=== PATIENT | female | born 1960 | race Caucasian/White ===

== ENCOUNTER 2017-10-31 07:51 | Outpatient (REF) | payer MEDICAID, SELFPAY ==
[2012-05-13 09:14] VITALS: BP 98/60; BP 98/70; PULSE 76
[2017-10-31 12:55] LABS: HCT 35.5 % (36.0-46.0); HGB 11.6 g/dL (12.0-15.5); Mean Corp. HGB Concentration 32.7 g/dL (32.0-36.0); Mean Corpuscular Hemoglobin 32.3 pg (27.0-33.0); Mean Corpuscular Volume 98.9 fL (80-95); Mean Platelet Volume 10.2 fL (8.0-11.0); Platelet Count 176 x1000/uL (130-400); RBC 3.59 m/cumm (4.00-5.20); RBC Distribution Width 13.6 % (11.7-14.6); White Blood Cell Count 5.87 k/cumm (4.4-10.8)
[2017-10-31 13:31] LABS: ALT 22 U/L (12-78); AST 21 U/L (15-37); Albumin 3.5 g/dL (3.4-5.0); Alkaline Phosphatase 53 U/L (46-116); Anion Gap 11.2 mmol/L (3-11); BUN 27 mg/dL (7-18); Bilirubin, Total 0.4 mg/dL (0.2-1.0); CO2 21.8 mmol/L (21.0-32.0); CREATININE 1.25 mg/dL (0.55-1.02); Calcium 8.6 mg/dL (8.5-10.1); Chloride 108 mmol/L (98-107); Glucose 78 mg/dL (70-100); Potassium 3.2 mmol/L (3.5-5.1); Sodium 141 mmol/L (136-145); TSH (W/Ref FT4) 1.55 uIU/mL (0.358-3.74); Vitamin B12 685 pg/mL (193-986)
[2017-10-31 13:33] LABS: Folate > 20.0 ng/mL (8.6-20.0)
[2017-10-31 18:05] LABS: Iron 176 ug/dL (50-175); Total Iron Binding Capacity 334 ug/dL (250-450); Transferrin Sat 53 % (15-50)
[2017-10-31 18:18] LABS: Ferritin 102 ng/mL (8-388)
== END 2017-10-31 08:11 ==
LOC: NCHCN 07:51
PROVIDERS: PCP Family Medicine; Visit Provider Family Medicine
DX: D64.9 Anemia, unspecified (principal); K50.90 Crohn's disease, unspecified, without complications; E53.8 Deficiency of other specified B group vitamins; N18.3 Chronic kidney disease, stage 3 (moderate); E03.9 Hypothyroidism, unspecified
CPT/HCPCS: 80053; 85027; 82607; 82728; 82746; 83540; 83550; 84443

== ENCOUNTER 2017-12-27 10:47 | Outpatient (REF) | payer MEDICAID, SELFPAY ==
[2012-05-13 09:14] VITALS: BP 98/60; BP 98/70; PULSE 76
[2017-12-27 12:59] LABS: Anion Gap 11.8 mmol/L (3-11); CO2 23.2 mmol/L (21.0-32.0); CREATININE 1.08 mg/dL (0.55-1.02); Calcium 8.9 mg/dL (8.5-10.1); Chloride 104 mmol/L (98-107); Estimated GFR 52.67 (mL/min/1.73m2); Potassium 4.2 mmol/L (3.5-5.1); Sodium 139 mmol/L (136-145)
[2017-12-27 14:17] LABS: BUN 26 mg/dL (7-18); Glucose 72 mg/dL (70-100)
== END 2017-12-27 11:07 ==
LOC: NCHCN 10:47
PROVIDERS: PCP Family Medicine; Visit Provider Family Medicine
DX: E87.6 Hypokalemia (principal)
CPT/HCPCS: 80048

== ENCOUNTER 2018-01-01 11:38 | Outpatient (CLI) | payer MEDICAID, SELFPAY ==
[2012-05-13 09:14] VITALS: BP 98/60; BP 98/70; PULSE 76
--- NOTE | 2018-01-01 14:15 | MERGE_ITS ---
*[facility]* *[facility]* [address] [place] [address] Date of study: 01/01/2018 Transthoracic Echocardiography M-mode, complete 2D, complete spectral Doppler, and color Doppler *STUDY CONCLUSIONS* Summary: 1. Left ventricle: The cavity size was normal. Wall thickness was normal. Systolic function was normal. The estimated ejection fraction was 60-65%. Wall motion was normal; there were no regional wall motion abnormalities. 2. Aortic valve: A bicuspid morphology cannot be excluded; normal thickness, mildly calcified leaflets. Valve mobility was restricted. There was moderate to severe stenosis. Peak velocity (S): 4m/sec. Mean gradient (S): 34.7mm Hg. VTI ratio of LVOT to aortic valve: 0.28. Valve area (VTI): 0.9cm^2. 3. Ascending aorta: The ascending aorta was mildly dilated. 4. Mitral valve: Mildly calcified annulus. 5. Right ventricle: The cavity size was normal. Wall thickness was normal. Systolic function was normal. *PATIENT PRESENTATION* Height: 154.9cm ((61in) ) S/D Pressure: 110 / 72 Weight: 59kg ((129.7lb) ) BSA: 1.6m^2 Test start time: 02:20 PM. Test stop time: 03:20 PM. ORDERING Lindsey Clay REFERRING Lindsey Clay PERFORMING Unknown PERFORMING [facility] OVERSEAMER RT Andrea BarraganR)(ALAYNA)KATHIA *PROCEDURE DATA* Procedure information: The patient was identified by two identifiers. This study was interpreted by [facility]. Pertinent images and digital data are archived for permanent storage and are available for subsequent review. Comparison was made to the study of 10/31/2014. Study status: Routine. Transthoracic echocardiography. M-mode, complete 2D, complete spectral Doppler, and color Doppler. A Transthoracic Echocardiogram was performed. Scanning was performed from the parasternal, apical, subcostal, and suprasternal notch acoustic windows. Images were obtained using an [id number] cardiac ultrasound machine. Image quality was adequate. Study completion: The patient tolerated the procedure well. There were no complications. History: PMH: Follow up . *CARDIAC ANATOMY* Left ventricle: The cavity size was normal. Wall thickness was normal. Systolic function was normal. The estimated ejection fraction was 60-65%. Wall motion was normal; there were no regional wall motion abnormalities. Diastolic parameters were normal. Aortic valve: A bicuspid morphology cannot be excluded; normal thickness, mildly calcified leaflets. Valve mobility was restricted. Doppler: There was moderate to severe stenosis. There was no significant regurgitation. VTI ratio of LVOT to aortic valve: 0.28. Valve area (VTI): 0.9cm^2. Indexed valve area (VTI): 0.5cm^2/m^2. Peak velocity ratio of LVOT to aortic valve: 0.27. Valve area (Vmax): 0.9cm^2. Indexed valve area (Vmax): 0.5cm^2/m^2. Mean velocity ratio of LVOT to aortic valve: 0.3. Valve area (Vmean): 1cm^2. Indexed valve area (Vmean): 0.6cm^2/m^2. Mean gradient (S): 34.7mm Hg. Peak gradient (S): 63.2mm Hg. Aorta: Aortic root: The aortic root was normal in size. Ascending aorta: The ascending aorta was mildly dilated. Mitral valve: Mildly calcified annulus. Mobility was not restricted. Doppler: Transvalvular velocity was within the normal range. There was no evidence for stenosis. There was trivial regurgitation. Valve area by pressure half-time: 4.3cm^2. Indexed valve area by pressure half-time: 2.6cm^2/m^2. Peak gradient (D): 5.3mm Hg. Left atrium: The atrium was normal in size. Right ventricle: The cavity size was normal. Wall thickness was normal. Systolic function was normal. Pulmonic valve: The pulmonary valve appears to be grossly normal. Doppler: Transvalvular velocity was within the normal range. There was no evidence for stenosis. There was trivial regurgitation. Peak gradient (S): 3.2mm Hg. Tricuspid valve: Structurally normal valve. Doppler: Transvalvular velocity was within the normal range. There was no evidence for stenosis. There was mild regurgitation. Pulmonary artery: Pulmonary systolic pressure was within the normal range, in the range of 25mm Hg to 30mm Hg. Right atrium: The atrium was normal in size. Pericardium: There was no pericardial effusion. Systemic veins: Inferior vena cava: Well visualized. The vessel was patent and normal in size. The respirophasic diameter changes were blunted (less than 50%). Baseline ECG: Normal sinus rhythm. Measurements Left ventricle Value Reference LV ID, ED, PLAX 4.4 cm 3.5 - 6.0 LV ID, ES, PLAX 3.1 cm 2.1 - 4.0 LV PW thickness, ED, PLAX 0.8 cm LV end-diastolic volume, 1-p A2C 64 ml LV ejection fraction, 1-p A2C 61 % LV end-diastolic volume, 1-p A4C 45 ml LV ejection fraction, 1-p A4C 64 % LV e', lateral 0.095 m/sec LV E/e', lateral 12 LV e', medial 0.105 m/sec LV E/e', medial 11 LV e', average 0.1 m/sec LV E/e', average 12 Ventricular septum Value Reference IVS thickness, ED, PLAX 0.7 cm LVOT Value Reference LVOT ID, A-P 2.0 cm LVOT area 3.1 cm^2 LVOT peak velocity, S 1.09 m/sec LVOT mean velocity, S 0.83 m/sec LVOT VTI, S 25.5 cm LVOT peak gradient, S 4.7 mm Hg LVOT mean gradient, S 3 mm Hg Stroke volume (SV), LVOT DP 80 ml Stroke index (SV/bsa), LVOT DP 50 ml/m^2 Aortic valve Value Reference Aortic valve peak velocity, S 4 m/sec Aortic valve mean velocity, S 2.73 m/sec Aortic valve VTI, S 92.0 cm Aortic mean gradient, S 34.7 mm Hg Aortic peak gradient, S 63.2 mm Hg VTI ratio, LVOT/AV 0.28 Aortic valve area, VTI 0.9 cm^2 Velocity ratio, peak, LVOT/AV 0.27 Aortic valve area, peak velocity 0.9 cm^2 Velocity ratio, mean, LVOT/AV 0.3 Aortic valve area, mean velocity 1 cm^2 Aortic valve area/bsa, mean velocity 0.6 cm^2/m^2 Aorta Value Reference Aortic root ID, ED 2.6 cm Ascending aorta ID, A-P, S 3.8 cm Left atrium Value Reference LA ID, A-P, ES 2.5 cm LA ID/bsa, A-P 1.6 cm/m^2 <=2.2 LA area, ES, A4C 13.5 cm^2 8.8 - 23.4 LA area, ES, A2C 13 cm^2 LA volume/bsa, ES, 1-p A4C 35 ml/m^2 LA volume, ES, 2-p 30 ml LA volume/bsa, ES, 2-p 19 ml/m^2 LA/aortic root ratio 0.97 Mitral valve Value Reference Mitral E-wave peak velocity 1.15 m/sec Mitral A-wave peak velocity 0.82 m/sec Mitral deceleration time 179 ms 150 - 230 Mitral pressure half-time 52 ms Mitral peak gradient, D 5.3 mm Hg Mitral E/A ratio, peak 1.41 Mitral valve area, PHT, DP 4.3 cm^2 Tricuspid valve Value Reference Tricuspid regurg peak velocity 2.6 m/sec Tricuspid peak RV-RA gradient 27.9 mm Hg Right atrium Value Reference RA area, ES, A4C 10.1 cm^2 8.3 - 19.5 Pulmonic valve Value Reference Pulmonic peak gradient, S 3.2 mm Hg Legend: (L) and (H) will values outside specified reference range. I have personally reviewed the images and have reviewed and edited the reported findings. Electronically signed by Chidi Lopez 01/01/2018 16:07
== END 2018-01-01 11:58 ==
PROVIDERS: PCP Family Medicine; Visit Provider Family Medicine
DX: I35.0 Nonrheumatic aortic (valve) stenosis (principal); I77.819 Aortic ectasia, unspecified site
CPT/HCPCS: 93306

== ENCOUNTER 2018-03-21 13:28 | Outpatient (CLI) | payer MEDICAID, SELFPAY ==
[2012-05-13 09:14] VITALS: BP 98/60; BP 98/70; PULSE 76
[2018-03-21 14:08] LABS: Abs Immature Grans 0.02 k/cumm (0.0-0.09); Absolute Basophil Count 0.02 k/cumm (0.0-0.2); Absolute Eosinophil Count 0.08 k/cumm (0.0-0.7); Absolute Lymphocyte Count 2.27 k/cumm (1.2-3.4); Absolute Monocyte Count 0.44 k/cumm (0.11-0.7); Absolute Neutrophil Count 7.06 k/cumm (1.2-6.7); Basophils % 0.2; Eosinophils % 0.8; HCT 35.8 % (36.0-46.0); HGB 12.2 g/dL (12.0-15.5); Immature Grans % 0.2; Mean Corp. HGB Concentration 34.1 g/dL (32.0-36.0); Mean Corpuscular Volume 96.8 fL (80-95); Mean Platelet Volume 9.2 fL (8.0-11.0); Monocytes % 4.4; Neutrophils % 71.4; Platelet Count 211 x1000/uL (130-400); RBC Distribution Width 12.4 % (11.7-14.6); White Blood Cell Count 9.89 k/cumm (4.4-10.8)
[2018-03-21 15:33] LABS: ALT 33 U/L (12-78); AST 26 U/L (15-37); Albumin 3.6 g/dL (3.4-5.0); Alkaline Phosphatase 67 U/L (46-116); BUN 28 mg/dL (7-18); Bilirubin, Total 0.3 mg/dL (0.2-1.0); C-Reactive Protein 0.09 mg/dL (0.0-0.3); CREATININE 1.21 mg/dL (0.55-1.02); Calcium 8.8 mg/dL (8.5-10.1); Chloride 103 mmol/L (98-107); Glucose 97 mg/dL (70-100); Sodium 139 mmol/L (136-145); Total Protein 7.8 g/dL (6.4-8.2)
[2018-03-26 18:51] LABS: Adalimumab QN with Reflex Ab 8.3 mcg/mL
== END 2018-03-21 13:48 ==
PROVIDERS: PCP Family Medicine; Visit Provider Internal Medicine Gastroenterology
DX: K50.018 Crohn's disease of small intestine with other complication (principal)
CPT/HCPCS: 36415; 80053; 83520; 85025; 86140

== ENCOUNTER 2018-09-05 10:14 | Outpatient (CLI) | payer MEDICAID, SELFPAY ==
[2012-05-13 09:14] VITALS: BP 98/60; BP 98/70; PULSE 76
[2018-09-05 14:44] LABS: Abs Immature Grans 0.02 k/cumm (0.0-0.09); Absolute Basophil Count 0.02 k/cumm (0.0-0.2); Absolute Eosinophil Count 0.17 k/cumm (0.0-0.7); Absolute Monocyte Count 0.58 k/cumm (0.11-0.7); Absolute Neutrophil Count 4.12 k/cumm (1.2-6.7); Basophils % 0.3; Eosinophils % 2.3; HCT 36.9 % (36.0-46.0); HGB 12.2 g/dL (12.0-15.5); Immature Grans % 0.3; Lymphocytes % 32.8; Mean Corp. HGB Concentration 33.1 g/dL (32.0-36.0); Mean Corpuscular Hemoglobin 32.3 pg (27.0-33.0); Mean Corpuscular Volume 97.6 fL (80-95); Mean Platelet Volume 9.5 fL (8.0-11.0); Monocytes % 7.9; Neutrophils % 56.4; Platelet Count 178 x1000/uL (130-400); RBC 3.78 m/cumm (4.00-5.20); RBC Distribution Width 12.4 % (11.7-14.6); White Blood Cell Count 7.31 k/cumm (4.4-10.8)
[2018-09-05 16:02] LABS: ALT 42 U/L (12-78); AST 38 U/L (15-37); Albumin 3.5 g/dL (3.4-5.0); Alkaline Phosphatase 67 U/L (46-116); Anion Gap 12.1 mmol/L (3-11); BUN 23 mg/dL (7-18); Bilirubin, Total 0.3 mg/dL (0.2-1.0); CO2 19.9 mmol/L (21.0-32.0); CREATININE 1.25 mg/dL (0.55-1.02); Calcium 8.4 mg/dL (8.5-10.1); Chloride 105 mmol/L (98-107); Estimated GFR 44.33 (mL/min/1.73m2); Glucose 88 mg/dL (70-100); Potassium 4.7 mmol/L (3.5-5.1); Sodium 137 mmol/L (136-145); TSH 0.51 uIU/mL (0.358-3.74)
[2018-09-05 16:16] LABS: C-Reactive Protein 0.23 mg/dL (0.0-0.3); Total Protein 7.2 g/dL (6.4-8.2)
[2018-09-07 15:09] LABS: Adalimumab QN with Reflex Ab 10.3 mcg/mL
== END 2018-09-05 10:34 ==
PROVIDERS: PCP Family Medicine; Visit Provider Internal Medicine Gastroenterology
DX: K50.80 Crohn's disease of both small and large intestine without complications (principal); K50.018 Crohn's disease of small intestine with other complication
CPT/HCPCS: 36415; 80053; 83520; 84443; 85025; 86140

== ENCOUNTER 2018-12-13 01:54 | Outpatient (CLI) | payer MEDICAID, SELFPAY ==
[2012-05-13 09:14] VITALS: BP 98/60; BP 98/70; PULSE 76
[2018-12-13 10:04] LABS: Abs Immature Grans 0.01 k/cumm (0.0-0.09); Absolute Basophil Count 0.02 k/cumm (0.0-0.2); Absolute Eosinophil Count 0.18 k/cumm (0.0-0.7); Absolute Lymphocyte Count 1.57 k/cumm (1.2-3.4); Absolute Monocyte Count 0.62 k/cumm (0.11-0.7); Absolute Neutrophil Count 4.67 k/cumm (1.2-6.7); Basophils % 0.3; Eosinophils % 2.5; HCT 39.7 % (36.0-46.0); HGB 12.7 g/dL (12.0-15.5); Immature Grans % 0.1; Lymphocytes % 22.2; Mean Corpuscular Hemoglobin 31.8 pg (27.0-33.0); Mean Corpuscular Volume 99.3 fL (80-95); Mean Platelet Volume 10.1 fL (8.0-11.0); Monocytes % 8.8; Neutrophils % 66.1; Platelet Count 189 x1000/uL (130-400); RBC Distribution Width 12.7 % (11.7-14.6); White Blood Cell Count 7.07 k/cumm (4.4-10.8)
[2018-12-13 11:26] LABS: ALT 28 U/L (14-59); AST 21 U/L (15-37); Albumin 3.7 g/dL (3.4-5.0); Alkaline Phosphatase 66 U/L (46-116); Anion Gap 12.2 mmol/L (3-11); BUN 29 mg/dL (7-18); Bilirubin, Total 0.4 mg/dL (0.2-1.0); CO2 21.8 mmol/L (21.0-32.0); CREATININE 1.23 mg/dL (0.55-1.02); Calcium 9.3 mg/dL (8.5-10.1); Chloride 105 mmol/L (98-107); Estimated GFR 45.17 (mL/min/1.73m2); Glucose 85 mg/dL (70-100); Sodium 139 mmol/L (136-145); Total Protein 7.8 g/dL (6.4-8.2)
[2018-12-13 11:59] LABS: TSH (W/Ref FT4) 1.08 uIU/mL (0.36-3.74); Vitamin B12 428 pg/mL (193-986)
[2018-12-13 12:35] LABS: C-Reactive Protein 0.46 mg/dL (0.0-0.3)
[2018-12-17 21:00] LABS: Adalimumab QN with Reflex Ab 12.7 mcg/mL
== END 2018-12-13 02:14 ==
PROVIDERS: Internal Medicine Gastroenterology; PCP Family Medicine; Visit Provider Family Medicine
DX: E87.6 Hypokalemia (principal); M79.642 Pain in left hand; E53.8 Deficiency of other specified B group vitamins; K50.018 Crohn's disease of small intestine with other complication
CPT/HCPCS: 36415; 80053; 83520; 82607; 84443; 85025; 86140

== ENCOUNTER 2019-01-20 08:15 | Outpatient (CLI) | payer MEDICAID, SELFPAY ==
[2012-05-13 09:14] VITALS: BP 98/60; BP 98/70; PULSE 76
== END 2019-01-20 08:35 ==
PROVIDERS: PCP Family Medicine; Visit Provider Internal Medicine Cardiovascular Disease
DX: I35.0 Nonrheumatic aortic (valve) stenosis (principal); R01.1 Cardiac murmur, unspecified; Z82.49 Family history of ischemic heart disease and other diseases of the circulatory system
CPT/HCPCS: 93005; 93010

== ENCOUNTER 2019-01-27 00:04 | Outpatient (CLI) | payer MEDICAID, SELFPAY ==
[2012-05-13 09:14] VITALS: BP 98/60; BP 98/70; PULSE 76
--- NOTE | 2019-01-27 10:44 | DI.MAMMO_ITS ---
EXAM: MG MAMMO SCREENING CLINICAL HISTORY: SCREENING Z12.31. TECHNIQUE: Full field digital CC and MLO mammographic images were obtained with 3D tomosynthesis and utilizing computer aided detection (CAD). COMPARISON: [id number] available for comparison. FINDINGS: Masses/Architectural Distortion: None seen. Microcalcifications: No suspicious pleomorphic-type are seen. Skin Thickening/Nipple Retraction: None. IMPRESSION: 1. No significant interval change with no specific features of malignancy noted. 2. Unless there is more urgent need, screening mammography is recommended, as per [employer] guidelines. BI-RADS Cat 1 - Negative Breast Density - Category B - Scattered areas of fibroglandular density A negative radiographic report should not delay biopsy if a dominant or clinically suspicious mass is present. Up to ten percent of cancers are not identified on mammography. A negative report may reinforce clinical impression. Adenosis and dense breasts may obscure an underlying neoplasm. False positive reports average 6 to 10%. Patient will receive a letter notifying them of these results.
== END 2019-01-27 00:24 ==
PROVIDERS: PCP Family Medicine; Visit Provider Family Medicine
DX: Z12.31 Encounter for screening mammogram for malignant neoplasm of breast (principal)
CPT/HCPCS: 77063; 77067

== ENCOUNTER 2019-02-11 01:12 | Outpatient (CLI) | payer MEDICAID, SELFPAY ==
[2012-05-13 09:14] VITALS: BP 98/60; BP 98/70; PULSE 76
--- NOTE | 2019-02-11 07:30 | DI.US_ITS ---
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 Conclusion Normal left ventricular size and wall thickness EF is 60-65% with normal wall motion There is no chamber enlargement. The mitral leaflets are thickened with trace regurgitation The aortic valve is probably trileaflet It is sclerotic with moderate to severe aortic stenosis ( m norm gradient 34 mm Hg, calculated aortic valve area 0.8-0.9 cm2) There is mild tricuspid regurgitation The ascending aorta is mildly dilated at 3.8 cm Wall motion Left Ventricle The left ventricle is normal size. Left ventricular systolic function is normal. There is top normal left ventricular wall thickness. Regional wall motion is normal. Left ventricular filling pattern is normal for age. LVEF is estimated to be 60-65%. Right Ventricle Right ventricle is grossly normal in size. Right ventricular systolic function is grossly normal. Atria The left atrium size is normal. The right atrium size is normal. Aortic Valve Aortic valve leaflets are mild to moderately thickened. The valve is probably trileaflet Moderate to severe aortic stenosis. No aortic regurgitation is present. Mitral Valve Mitral valve leaflets are thickened, Trace mitral regurgitation. Tricuspid Valve Tricuspid valve is grossly normal in structure and function. Mild tricuspid regurgitation. Pulmonic Valve Pulmonic valve is not well visualized. Great Vessels Aortic root is normal in size. The pulmonary artery is normal. The ascending aorta is mildly dilated. Pericardium No pericardial effusion. 2D Dimensions IVSd 1.10 cm F: 0.6-1.0 LV EDV A2C 46.80 mL PWd 1.05 cm F: 0.6 - 1.0 LV EDV A4C 39.90 mL LVDd 3.80 cm F: 3.8 - 5.2 LA Volume Index A2C 19.68 mL/m2 LVDs 2.45 cm F: 2.2 - 3.5 LA Volume Index A4C 14.54 mL/m2 Aortic Root 2.75 cm F: 2.7 - 3.3 LA Volume Index Biplane 18.08 mL/m2 RA Area A4C 11.59 cm2 LA Area A4C 11.40 cm2 LVOT 1.90 cm (M/F) 1.5-2.5 LA Area A2C 12.41 cm2 Ascending Aorta 3.81 cm F: 2.3 - 3.1 EF AP4 64.66 % LVEF (Teich) 65.77 % EF AP2 59.83 % LVEF (Reddy's) 60.22 % F: 54 - 74 EF BP 60.22 % LV Volume 39.27 mL F: 46 - 106 LV Volume Index 24.85 mL/m2 F: 29 - 61 FS 35.55 % LV Diastology E/A Ratio 1.1 MED E' 0.10 (>0.07 m/s) LV E/e MED 8.70 (<14) LAT E' 0.10 (>0.1 m/s) LV E/e LAT 8.60 (<14) Aortic Valve LVOT Area 2.95 cm2 LVOT Vmax 1.05 m/s LVOT Mean Fabrizio. 0.77 m/s LVOT Peak Gr. 4.4 mmHg LVOT Mean Gr. 2.6 mmHg AoV Area/ BSA (Vmax) 0.49 cm2/m2 LVOT VTI 0.233 m AoV Vmax 4.01 (0.5-1.3 m/s) JAMES Mean Fabrizio. Index 0.53 cm2/m2 AoV Mean Fabrizio. 2.70 m/s AoV Peak Grad 64.3 mmHg AoV Mean Grad 34.2 (<5 mmHg) AoV VTI 0.902 (0.18-0.25 m) VTI Ratio 0.27 AoV Area VTI 0.79 (2.5-4.5 cm2) AoV Area/ BSA (VTI) 0.50 cm/m2 Mitral Valve MV E Max Fabrizio. 0.86 (0.4-1.3 m/s) MV A Velocity 0.75 (0.4-1.3 m/s) E/A Ratio 1.08 MV Decel. Time 204.45 (160-240 msec) MV PHT 59.30 msec MVA PHT 3.70 cm2 Tricuspid Valve TR P. Velocity 2.44 m/s TV Regurg Vmax 2.44 m/s RAP Estimate 3.00 mmHg RVSP 26.90 mmHg TR P. Gradient 23.90 mmHg
== END 2019-02-11 01:32 ==
PROVIDERS: PCP Family Medicine; Visit Provider Internal Medicine Cardiovascular Disease
DX: I35.0 Nonrheumatic aortic (valve) stenosis (principal); R01.1 Cardiac murmur, unspecified; I77.819 Aortic ectasia, unspecified site
CPT/HCPCS: 93306

== ENCOUNTER 2019-07-10 04:03 | Outpatient (CLI) | payer MEDICAID, SELFPAY ==
[2012-05-13 09:14] VITALS: BP 98/60; BP 98/70; PULSE 76
[2019-07-10 09:53] LABS: Abs Immature Grans 0.02 k/cumm (0.0-0.09); Absolute Basophil Count 0.01 k/cumm (0.0-0.2); Absolute Eosinophil Count 0.14 k/cumm (0.0-0.7); Absolute Lymphocyte Count 2.25 k/cumm (1.2-3.4); Absolute Neutrophil Count 4.44 k/cumm (1.2-6.7); Basophils % 0.1; Eosinophils % 1.9; HCT 37.8 % (36.0-46.0); HGB 12.5 g/dL (12.0-15.5); Immature Grans % 0.3 %; Lymphocytes % 30.6; Mean Corp. HGB Concentration 33.1 g/dL (32.0-36.0); Mean Corpuscular Hemoglobin 32.2 pg (27.0-33.0); Mean Corpuscular Volume 97.4 fL (80-95); Mean Platelet Volume 9.5 fL (8.0-11.0); Monocytes % 6.8; Neutrophils % 60.3; Platelet Count 201 x1000/uL (130-400); RBC 3.88 m/cumm (4.00-5.20); RBC Distribution Width 12.3 % (11.7-14.6); White Blood Cell Count 7.36 k/cumm (4.4-10.8)
[2019-07-10 10:56] LABS: ALT 30 U/L (14-59); AST 25 U/L (15-37); Albumin 3.5 g/dL (3.4-5.0); Alkaline Phosphatase 62 U/L (46-116); Bilirubin, Total 0.4 mg/dL (0.2-1.0); C-Reactive Protein 0.19 mg/dL (0.0-0.3); Total Protein 7.2 g/dL (6.4-8.2)
[2019-07-10 11:05] LABS: TSH (W/Ref FT4) 2.18 uIU/mL (0.36-3.74)
[2019-07-15 12:55] LABS: dsDNA Ab, IgG 80.3 IU/mL (<30.0)
[2019-07-15 14:42] LABS: RNP Ab, IgG 1.3 Units (<20.0); SS-A Antibody 1.2 Units (<20.0); SS-B (La) Ab, IgG 3.1 Units (<20.0); Sm (Smith) Ab, IgG 1.8 Units (<20.0)
== END 2019-07-10 04:23 ==
PROVIDERS: Internal Medicine Gastroenterology; PCP Family Medicine; Visit Provider Nurse Practitioner Family
DX: K50.80 Crohn's disease of both small and large intestine without complications (principal); E03.9 Hypothyroidism, unspecified; M19.90 Unspecified osteoarthritis, unspecified site
CPT/HCPCS: 36415; 80076; 84443; 85025; 86140; 86225; 86235

== ENCOUNTER 2019-10-24 15:37 | Outpatient (REF) | payer MEDICAID, SELFPAY ==
[2012-05-13 09:14] VITALS: BP 98/60; BP 98/70; PULSE 76
[2019-10-26 15:39] LABS: Patient Race White; SARS-CoV-2 RNA Undetected (Undetected); SARS-CoV-2 Specimen Source Nasal
== END 2019-10-24 15:57 ==
LOC: NCHCN 15:37
PROVIDERS: PCP Family Medicine; Visit Provider Family Medicine
DX: Z20.828 Contact with and (suspected) exposure to other viral communicable diseases (principal)
CPT/HCPCS: U0003

== ENCOUNTER 2019-11-24 01:39 | Outpatient (CLI) | payer MEDICAID, SELFPAY ==
[2012-05-13 09:14] VITALS: BP 98/60; BP 98/70; PULSE 76
[2019-11-24 12:17] LABS: Abs Immature Grans 0.02 10^3/uL (0.0-0.06); Absolute Basophil Count 0.03 10^3/uL (0.0-0.2); Absolute Eosinophil Count 0.12 10^3/uL (0.0-0.7); Absolute Monocyte Count 0.41 10^3/uL (0.1-0.8); Absolute Neutrophil Count 2.94 10^3/uL (1.2-6.7); Basophils % 0.6; Eosinophils % 2.3; HCT 41.5 % (36.0-46.0); HGB 13.8 g/dL (11.2-15.7); Immature Grans % 0.4; Lymphocytes % 32.6; MCH 33.7 pg (27.0-33.0); MCHC 33.3 % (32.0-36.0); MCV 101.2 fL (80-95); MPV 9.4 fL (8.0-11.0); Monocytes % 7.9; Neutrophils % 56.2; Nucleated RBC 0 %; Platelet Count 217 10^3/uL (130-400); RDW-SD 45.4 fL; WBC 5.22 10^3/uL (4.4-10.8)
[2019-11-24 13:41] LABS: ALT 33 U/L (14-59); AST 25 U/L (15-37); Alkaline Phosphatase 72 U/L (46-116); Bilirubin, Total 0.3 mg/dL (0.2-1.0); C-Reactive Protein 0.54 mg/dL (0.0-0.3); Total Protein 8.1 g/dL (6.4-8.2)
== END 2019-11-24 01:59 ==
PROVIDERS: PCP Family Medicine; Visit Provider Internal Medicine Gastroenterology
DX: K50.90 Crohn's disease, unspecified, without complications (principal)
CPT/HCPCS: 36415; 80076; 85025; 86140

== ENCOUNTER 2020-01-13 03:36 | Outpatient (CLI) | payer MEDICAID, SELFPAY ==
[2012-05-13 09:14] VITALS: BP 98/60; BP 98/70; PULSE 76
[2020-01-13 16:24] LABS: Abs Immature Grans 0.03 10^3/uL (0.0-0.06); Absolute Basophil Count 0.03 10^3/uL (0.0-0.2); Absolute Eosinophil Count 0.06 10^3/uL (0.0-0.7); Absolute Lymphocyte Count 1.65 10^3/uL (1.2-3.4); Absolute Monocyte Count 0.52 10^3/uL (0.1-0.8); Absolute Neutrophil Count 6.15 10^3/uL (1.2-6.7); Basophils % 0.4; Eosinophils % 0.7; HGB 12.2 g/dL (11.2-15.7); Immature Grans % 0.4; Lymphocytes % 19.5; MCH 32.7 pg (27.0-33.0); MCV 99.2 fL (80-95); MPV 10.3 fL (8.0-11.0); Monocytes % 6.2; Neutrophils % 72.8; Nucleated RBC 0 %; Platelet Count 205 10^3/uL (130-400); RBC 3.73 10^6/uL (3.93-5.22); RDW 12.6 % (11.7-14.6); RDW-SD 45.4 fL; WBC 8.44 10^3/uL (4.4-10.8)
[2020-01-13 17:52] LABS: ALT 30 U/L (14-59); AST 25 U/L (15-37); Alkaline Phosphatase 72 U/L (46-116); Bilirubin, Total 0.3 mg/dL (0.2-1.0); C-Reactive Protein 0.51 mg/dL (0.0-0.3)
== END 2020-01-13 03:56 ==
PROVIDERS: PCP Family Medicine; Visit Provider Internal Medicine Gastroenterology
DX: K50.80 Crohn's disease of both small and large intestine without complications (principal)
CPT/HCPCS: 36415; 80076; 85025; 86140

== ENCOUNTER 2020-02-02 00:26 | Outpatient (CLI) | payer MEDICAID, SELFPAY ==
[2012-05-13 09:14] VITALS: BP 98/60; BP 98/70; PULSE 76
--- NOTE | 2020-02-02 | DI.MAMMO_ITS ---
EXAM: MG MAMMO SCREENING CLINICAL HISTORY: SCREENING, ON HRT,Z01.419,Z79.890. TECHNIQUE: Bilateral full field digital CC and MLO mammographic images were obtained with 3D tomosyn thesis and utilizing computer aided detection (CAD). COMPARISON: Prior mammograms dating back to 2010, the most recent being January 2019. FINDINGS: Small benign-appearing noncalcified oval nodule lateral of center located anteriorly approximately 5 centimeters from the nipple appears unchanged from prior studies. There are no spiculated masses nor malignant appearing microcalcification groups. There is no signif icant architectural distortion nor skin thickening-retraction. IMPRESSION: No radiographic evidence of malignancy. Stable benign findings. BI-RADS Category 2 - Benign Findings Breast Density - Category B - Scattered areas of fibroglandular density Breast density Category C or D implies that the patient has dense breast tissue. Dense breast tissue can make it harder to find cancer on a mammogram. Dense breast tissue is also associated with an incr eased risk of breast cancer. This information about the result of the mammogram report was provided to the patient to raise their awareness. Use this report when you speak with the patient about their risks for breast cancer, which includes their family history. At that time, you may recommend additional screening tests (Ultrasoun d or MRI) as these tests may add significant information. A negative radiographic report should not delay biopsy if a dominant or clinically suspicious mass is present. Up to ten percent of cancers are not identified on mammography. A negative report may reinforce clinical impression. Adenosis and dense breasts may obscure an underlying neoplasm. False positive reports average 6 to 10%. Patient will receive a letter notifying them of these results.
== END 2020-02-02 00:46 ==
PROVIDERS: PCP Family Medicine; Visit Provider Obstetrics & Gynecology Gynecology
DX: Z12.31 Encounter for screening mammogram for malignant neoplasm of breast (principal); I35.0 Nonrheumatic aortic (valve) stenosis
CPT/HCPCS: 77063; 77067

== ENCOUNTER 2020-02-02 00:27 | Outpatient (CLI) | payer MEDICAID, SELFPAY ==
[2012-05-13 09:14] VITALS: BP 98/60; BP 98/70; PULSE 76
--- NOTE | 2020-02-02 10:57 | DI.US_ITS ---
APPROVED REPORT EXAM: Comprehensive 2D, Doppler, and color-flow Echocardiogram Patient Location: Out-Patient Novelty Twister Operator: Jenna Jett RDCS (AE) Indications: Aortic Stenosis Other Information Study Quality: Adequate Conclusion Left Ventricle : The left ventricle is normal size. The left ventricular systolic function is normal. The left ventricular ejection fraction is within the normal range. There is normal left ventricular wall thickness. There is normal LV segmental wall motion. The left ventricular diastolic function is normal. LVEF is 60%. Right Ventricle : The right ventricle is normal size. The right ventricular systolic function is norm al. The RVSP is 22.6 mmHg. Atria : The left atrium size is normal. The right atrium size is normal. Aortic Valve : The Aortic valve is sclerotic. Aortic valve is calcified. Aortic valve is probably t rileaflet. Moderate to severe aortic stenosis by gradient. Peak aortic valve gradient is 41.2mmHg. Hi ghest mean aortic valve gradient is 25.9mmHg. Calculated JAMES by the continuity equation is .96cm2. N o aortic regurgitation is present. Mitral Valve : Moderate mitral annular calcification. Trace mitral regurgitation. No evidence of mitr al valve stenosis. Great Vessels : The aortic root is normal in size. The ascending aorta is moderately dilated (3.7cm). Aortic arch is normal in caliber. IVC is normal in size and collapses >50% with inspiration. Compared to study from 02/11/2019: There is no significant change. The patient's aortic stenosis rem ains moderate by gradient and severe by calculated area. Wall motion Left Ventricle The left ventricle is normal size. The left ventricular systolic function is normal. The left ventric ular ejection fraction is within the normal range. There is normal left ventricular wall thickness. T here is normal LV segmental wall motion. The left ventricular diastolic function is normal. There is no ventricular septal defect visualized. LVEF is 60%. Right Ventricle The right ventricle is normal size. The right ventricular systolic function is normal. The RVSP is 22 .6 mmHg. Atria The left atrium size is normal. The right atrium size is normal. The interatrial septum is intact wit h no evidence for an atrial septal defect. Aortic Valve The Aortic valve is sclerotic. Aortic valve is calcified. Aortic valve is probably trileaflet. Moder ate to severe aortic stenosis. Peak aortic valve gradient is 41.2mmHg. Highest mean aortic valve grad ient is 25.9mmHg. Calculated JAMES by the continuity equation is .96cm2. No aortic regurgitation is pre sent. Mitral Valve Moderate mitral annular calcification. No evidence of mitral valve stenosis. Trace mitral regurgitati on. Tricuspid Valve The tricuspid valve is normal in structure. There is no tricuspid valve stenosis. Trace tricuspid reg urgitation. Pulmonic Valve Pulmonic valve is not well visualized. There is no pulmonic valvular stenosis. There is no pulmonic v alvular regurgitation. Great Vessels The aortic root is normal in size. The ascending aorta is moderately dilated (3.7cm). Aortic arch is normal in caliber. IVC is normal in size and collapses >50% with inspiration. Pericardium There is no pericardial effusion. 2D Dimensions IVSD d PLAX 0.85 cm F: 0.6-1.0 LV Vol A2C d MOD 83.8 mL LVPW d PLAX 0.87 cm F: 0.6 - 1.0 LV Vol A4C d MOD 71.4 mL LVID d PLAX 4.01 cm F: 3.8 - 5.2 LA vol/ BSA A2C s A-L 18.2 mL/m2 LVDs 2.45 cm F: 2.2 - 3.5 LA vol/ BSA A4C s A-L 16.5 mL/m2 Ao Root d 2.35 cm F: 2.7 - 3.3 LA Vol/ BSA Biplane s A-L 17.5 mL/m2 RA Area A4C 9.83 cm2 LA Area A4C s MOD 12.22 cm2 RA Vol/ BSA A4C s A-L 13.6 mL/m2 LA Area A2C s MOD 12.75 cm2 Ao Asc Diam d 3.70 cm F: 2.3 - 3.1 LV EF A4C MOD 60.5 % LV EF Teichholz 69.6 % LV EF A2C MOD 59.7 % LVEF (Reddy's) 58.89 % F: 54 - 74 LV EF Biplane MOD 58.9 % LV Volume 62.86 mL F: 46 - 106 SV 45.55 mL LV Volume Index 39.53 mL/m2 F: 29 - 61 SV Index 28.49 mL/m2 LV Vol Biplane MOD 77.3 mL FS 38.70 % M-Mode TAPSE 2.17 cm (M/F) >1.7 LV Diastology MV E' medial 0.093 (>0.07 m/s) E/A Ratio 1.0 LV E/e MED 9.20 (<14) MV E Vmax 0.86 (0.4-1.3 m/s) MV E' lateral 0.100 (>0.1 m/s) MV A Vmax 0.85 (0.4-1.3 m/s) LV E/e LAT 8.50 (<14) MV E/A Ratio 0.96 MV E/E' medial 9.22 MV E/E' lateral 8.55 Aortic Valve LVOT Area 2.70 cm2 AoV Area Vmax 0.96 cm2 LVOT Vmax 1.13 m/s AoV Area/ BSA (Vmax) 0.60 cm2/m2 LVOT Mean Fabrizio. 0.82 m/s JAMES Mean Fabrizio. 0.92 cm2 LVOT Peak Grad 5.1 mmHg JAMES Mean Fabrizio. Index 0.57 cm2/m2 LVOT Mean Grad 3.1 mmHg LVOT VTI 0.225 m LVOT Diam s 1.85 cm AoV Vmax 3.21 m/s Velocity Ratio 0.35 AoV Mean Fabrizio. 2.43 m/s AoV Peak Grad 41.2 mmHg LVOT SV 60.90 mL AoV Mean Grad 25.9 mmHg AoV VTI 0.622 m AoV Area VTI 0.98 cm2 AoV Area/ BSA (VTI) 0.61 cm/m2 Mitral Valve MV DT 233 (160-240 msec) MV PHT 68 msec MV Area PHT 3.25 cm2 MV VTI 0.237 m MV VTI Annulus 0.245 m MV Area VTI 2.67 (4.0-6.0 cm2) Pulmonary Valve PV Vmax 0.83 (0.5-1.5 m/s) RVOT Peak Gr. 1.65 mmHg PV Peak Grad 2.8 mmHg RVOT Mean Gr. 0.85 mmHg PV Mean Grad 1.7 mmHg RVOT VTI 0.112 m PV VTI 0.172 m RVOT Vmax 0.64 m/s Tricuspid Valve TR Peak Grad 19.5 mmHg TR Vmax 2.21 m/s RA Pressure 3.00 mmHg RVSP (TR) 22.6 mmHg
== END 2020-02-02 00:47 ==
PROVIDERS: PCP Family Medicine; Visit Provider Internal Medicine Cardiovascular Disease
DX: I35.0 Nonrheumatic aortic (valve) stenosis (principal); I77.810 Thoracic aortic ectasia
CPT/HCPCS: 93306

== ENCOUNTER 2020-06-04 01:02 | Outpatient (CLI) | payer MEDICAID, SELFPAY ==
[2012-05-13 09:14] VITALS: BP 98/60; BP 98/70; PULSE 76
[2020-06-04 12:30] LABS: Abs Immature Grans 0.03 10^3/uL (0.0-0.06); Absolute Basophil Count 0.03 10^3/uL (0.0-0.2); Absolute Eosinophil Count 0.12 10^3/uL (0.0-0.7); Absolute Lymphocyte Count 1.39 10^3/uL (1.2-3.4); Absolute Monocyte Count 0.45 10^3/uL (0.1-0.8); Basophils % 0.5; Eosinophils % 2.1; HCT 37.7 % (36.0-46.0); HGB 12.1 g/dL (11.2-15.7); Immature Grans % 0.5; Lymphocytes % 23.9; MCH 31.8 pg (27.0-33.0); MCHC 32.1 % (32.0-36.0); MPV 9.9 fL (8.0-11.0); Monocytes % 7.7; Neutrophils % 65.3; Nucleated RBC 0 %; Platelet Count 218 10^3/uL (130-400); RBC 3.81 10^6/uL (3.93-5.22); RDW 13.3 % (11.7-14.6); RDW-SD 47.5 fL; WBC 5.82 10^3/uL (4.4-10.8)
[2020-06-04 13:12] LABS: ALT 37 U/L (14-59); AST 33 U/L (15-37); Albumin 3.8 g/dL (3.4-5.0); Alkaline Phosphatase 71 U/L (46-116); Anion Gap 12.9 mmol/L (3-11); BUN 22 mg/dL (7-18); Bilirubin, Direct 0.1 mg/dL (0.0-0.2); Bilirubin, Total 0.2 mg/dL (0.2-1.0); C-Reactive Protein 0.36 mg/dL (0.0-0.3); CO2 24.1 mmol/L (21.0-32.0); CREATININE 1.2 mg/dL (0.55-1.02); Calcium 9.6 mg/dL (8.5-10.1); Chloride 105 mmol/L (98-107); Estimated GFR 46.14 (mL/min/1.73m2); Glucose 80 mg/dL (74-106); Potassium 4.2 mmol/L (3.5-5.1); Sodium 142 mmol/L (136-145); TSH (W/Ref FT4) 1.07 uIU/mL (0.36-3.74); Total Protein 7.6 g/dL (6.4-8.2)
[2020-06-04 13:21] LABS: Hemoglobin A1C 5.1 % (<5.7)
[2020-06-04 14:57] LABS: Vitamin B12 779 pg/mL (193-986)
[2020-06-08 13:52] LABS: dsDNA Ab, IgG 41.5 IU/mL (<30.0)
[2020-06-08 15:29] LABS: RNP Ab, IgG 1.7 Units (<20.0); SS-A Antibody 1.1 Units (<20.0); SS-B (La) Ab, IgG 2.3 Units (<20.0); Sm (Smith) Ab, IgG 1.6 Units (<20.0)
== END 2020-06-04 01:03 | disposition home or self-care (01) ==
LOC: LOS 01:03
PROVIDERS: PCP Family Medicine; Visit Provider Internal Medicine Gastroenterology
DX: K52.9 Noninfective gastroenteritis and colitis, unspecified; K50.919 Crohn's disease, unspecified, with unspecified complications; E87.6 Hypokalemia; E53.8 Deficiency of other specified B group vitamins; N18.30 Chronic kidney disease, stage 3 unspecified; E03.9 Hypothyroidism, unspecified; R79.89 Other specified abnormal findings of blood chemistry; M19.09 Primary osteoarthritis, other specified site
CPT/HCPCS: 36415; 80048; 80076; 82607; 83036; 84443; 85025; 86140; 86225; 86235

== ENCOUNTER 2020-11-11 09:58 | Emergency (ER) | payer MEDICAID, SELFPAY ==
[2012-05-13 09:14] VITALS: BP 98/60; BP 98/70; PULSE 76
[2020-11-11] VITALS (63 sets, daily range): BP systolic 93–128; BP diastolic 68–99; PULSE 87–143; RESP 12–29; TEMP 36–36.1; O2SAT 93–100
--- NOTE | 2020-11-11 10:00 | RT.EKG_ITS ---
APPROVED REPORT Exam: Resting ECG Reason for Exam: SOB Patient Location: E HR:130 bpm ECG Measurements Heart Rate 130 AXIS TN 137 P 69 QRSd 74 QRS 13 QT 283 T 87 QTc 417 Conclusion Sinus tachycardia...rate> 99. Sinus. No STEMI. I have reviewed and interpreted ECG and agree with software generated interpretation.
--- NOTE | 2020-11-11 10:02 | ED.GENADUL_ITS ---
Discharge Plan Disposition Patient Disposition: HOME Condition: Improving Discharge Details Clinical Impression: Diarrhea, Dehydration Primary Care Provider: Lindsey Clay ED Provider: Anisha Bernardo Home Meds and New Rx's Prescriptions: New oxycodone 5 mg tablet 5 mg PO Q6H PRN (Reason: pain) Qty: 7 RF: 0 Continued famotidine 20 mg tablet 20 mg PO HS RF: 0 topiramate [Topamax] 50 mg tablet 50 mg PO QHS Qty: 90 RF: 3 Zyrtec 10 mg capsule 10 mg PO DAILY PRNRF: 0 NEXIUM 40 MG CAPSULE.DR 40 mg PO BID RF: 0 Mirena 20 mcg/24 hours (6 yrs) 52 mg Intrauterine Device See Rx Instructions .ROUTE .COMPLEX RF: 0 rizatriptan 10 mg Tablet 10 mg PO DAILY PRNRF: 0 valacyclovir 500 mg Tablet 1,000 mg PO BID RF: 0 triamcinolone acetonide 0.1 % Cream 1 applic TOPICAL BID RF: 0 propranolol 10 mg Tablet 10 mg PO DAILY RF: 0 [id number] Tablet 1 tab PO DAILY RF: 0 estradiol [Climara] 0.025 mg/24 hr Patch Weekly 1 patch topical QWEEK RF: 0 levothyroxine 50 mcg Tablet 50 mcg PO DAILY RF: 0 cyanocobalamin (vitamin B-12) 1,000 mcg/mL Solution 1,100 mcg IM Q2W RF: 0 tacrolimus 0.1 % Ointment 1 applic topical PRN PRNRF: 0 zaleplon 10 mg Capsule 10 mg PO PRN PRNRF: 0 estradiol [Estrace] 0.01 % (0.1 mg/gram) Cream 1 applic VAGINAL DAILY RF: 0 clindamycin phosphate 1 % Solution 1 applic topical BID RF: 0 magnesium 200 mg Tablet 400 mg PO DAILY RF: 0 cholecalciferol (vitamin D3) 25 mcg (1,000 unit) Tablet 25 mcg PO DAILY RF: 0 potassium chloride 20 mEq Tablet Extended Release 20 meq PO DAILY RF: 0 Discharge Instructions Instructions: Dehydration (ED), Acute Diarrhea (ED) Additional Instructions: Your symptoms may be due to a viral illness which may be self-limiting, meaning that it may last for a few days and then resolved. It is important to drink a lot of fluids and get a lot of rest. Take the Zofran as needed and directed for nausea and vomiting. Take the pain medication as needed and directed for abdominal or leg pain. Call your primary care doctor tomorrow to schedule a follow-up appointment for reevaluation within the next week. Return immediately to the emergency department if you develop any worsening or new concerning symptoms. Discharge Data Discharge Date/Time-TO BE ENTERED AT DEPARTURE: 11/11/20 18:55 Discharge Physician: Anisha Bernardo Medical Decision Making 60-year-old female with a history of Crohn's disease with multiple abdominal surgeries including bowel resection and ileostomy, GERD, hypothyroidism presents for diarrhea and abdominal pain since last night. She also admits to shortness of breath which she feels is due to her feeling dehydrated. Heart rate 130s. Blood pressure 93/69. She appears uncomfortable with restless legs. She has an ileostomy and abdomen soft and tender in the lower quadrants but without rigidity or guarding. Consider colitis, gastroenteritis, bowel obstruction, electrolyte abnormality, UTI, dehydration. Will place an IV, bolus IV fluids, screening labs, urinalysis, CT abdomen and pelvis. Labs reviewed. White blood cell count 15. Hemoglobin 16.2. Bicarb 20.4. Anion gap 18.6. BUN 34 creatinine 2.3 compared to baseline 1.2. Calcium 12.2. COVID negative. UA notes blood but no evidence of white blood cells. CT abdomen and pelvis notes: IMPRESSION: 1. Previous colectomy. Right ileostomy. No bowel obstruction. No free air. No abscess. No ascites. 2. Cholelithiasis. No obvious acute cholecystitis nor dilatation of the biliary tree. 3. Solitary benign cyst superior pole left kidney. No other focal renal findings. No hydronephrosis. 4. IUD in satisfactory position in the uterine canal. No abnormal adnexal findings. No free fluid in the pelvis. 5. Nodular infiltrates in the right middle lobe. No pleural effusions. 7. Dilated ascending thoracic aorta exhibiting maximum diameter of 4 cm. Cannot assess for dissection without IV contrast. No pericardial effusion. Patient reassessed and she feels much better. Heart rate improved to low 100s. She denies any abdominal pain at this time. Will repeat CMP. Stool culture sent. CMP notes significant improvement in renal function and normalization of calcium. Patient reassessed and she continues to feel better and she feels good to go home. She was given oxycodone for home which may help with her diarrhea and pain. Advised to follow up with the primary care doctor for re-evaluation. Usual and customary return precautions given prior to discharge. Medical Records Medical records reviewed: Yes I reviewed the patient's medical records. Imaging Data Radiologic Study: Radiologist's impression: CT CHEST/ABD/PEL WO CLINICAL HISTORY: sob, abd pain, diarrhea. TECHNIQUE: Imaging Protocol: Axial computed tomography images with coronal and sagittal reformatted images were created and reviewed CONTRAST MATERIAL: Intravenous: none Oral: Yes COMPARISON: CR CHEST 2 VIEWS PA,LAT from 03/16/2015 FINDINGS: CHEST: LUNGS: There are small nodular infiltrates therein inferior aspect of the right middle lobe. There is a subtle noncalcified nodular infiltrate in the right upper lobe measuring 3 millimeters. Mild focal pleural thickening over the lateral aspect of the right upper lobe is noted. No pleural effusion. In the opposite-left lung there are benign-appearing increased markings in the lingular segment. No significant focal findings in the left lower lobe. No pleural effusion on either side. No focal findings in trachea and mainstem bronchi. MEDIASTINUM: No obvious hilar nor mediastinal adenopathy. CARDIAC: Heart size is normal. There is no pericardial effusion.The ascending thoracic aorta is dilated, exhibiting diameter 4 cm. Diameter of the aortic arch is upper normal. Diameter of descending thoracic aorta is upper normal. Cannot assess for dissection without IV contrast. OSSEOUS: No significant osseous lesions.. ABDOMEN: There is no ascites. There is a right-sided ileostomy. Colon is surgically absent. Oral contrast has progressed to the level of the ileostomy bag. There is no evidence of hernia at this level nor elsewhere in the abdominal wall. No mesenteric swirl sign. No free air. No free fluid. No abscess. LIVER: no obvious focal hepatic lesions evident on this noninfused study. GALLBLADDER/BILIARY: There is a solitary tiny hyperdense focus on the dependent wall of the gallbladder which is probably a tiny gallstone. No gallbladder wall edema. No pericholecystic fluid. CBD is not dilated. PANCREAS: No evidence of obvious pancreatic mass nor dilatation of the pancreatic duct. SPLEEN: Spleen is not enlarged. No obvious intrasplenic lesions. ADRENALS: There are no significant adrenal masses. KIDNEYS: There is a 1.7 x 1.7 cm benign exophytic cyst off the superior pole of the left kidney. There are no other significant focal renal findings. No calculi. No hydronephrosis. No hydroureter.. No obvious abnormality in the nondistended urinary bladder ABDOMINAL AORTA: Abdominal aorta is not enlarged. LYMPH NODES: There is no retroperitoneal nor para-aortic adenopathy. ABDOMINAL WALL/GI: No evidence of significant anterior abdominal wall nor inguinal hernia. No evidence of bowel obstruction. PELVIS: LYMPH NODES: There is no intrapelvic nor inguinal adenopathy. GI: Appendix is surgically absent.Previous colectomy. URINARY BLADDER: No calculi nor obvious masses evident REPRODUCTIVE: IUD in the uterine canal appears to be in satisfactory position. No abnormal adnexal masses. No free fluid in the pelvis. OSSEOUS: No significant osseous lesions. IMPRESSION: 1. Previous colectomy. Right ileostomy. No bowel obstruction. No free air. No abscess. No ascites. 2. Cholelithiasis. No obvious acute cholecystitis nor dilatation of the biliary tree. 3. Solitary benign cyst superior pole left kidney. No other focal renal findin gs. No hydronephrosis. 4. IUD in satisfactory position in the uterine canal. No abnormal adnexal findings. No free fluid in the pelvis. 5. Nodular infiltrates in the right middle lobe. No pleural effusions. 7. Dilated ascending thoracic aorta exhibiting maximum diameter of 4 cm. Cannot assess for dissection without IV contrast. No pericardial effusion. Lab Data Lab results reviewed: Yes I reviewed the patient's lab results. Labs: Laboratory Tests Range/Units 11/11/20 11/11/20 11/11/20 10:13 11:05 12:40 WBC (4.4-10.8) 10^3/uL 15.19 H RBC (3.93-5.22) 10^6/uL 5.12 Hgb (11.2-15.7) g/dL 16.2 H Hct (36.0-46.0) % 49.1 H MCV (80-95) fL 95.9 H MCH (27.0-33.0) pg 31.6 MCHC (32.0-36.0) % 33.0 RDW (11.7-14.6) % 12.1 Plt Count (130-400) 10^3/uL 274 MPV (8.0-11.0) fL 9.5 Immature Gran % 0.6 Neutrophils % 82.6 Lymphocytes % 9.9 Monocytes % 6.2 Eosinophils % 0.4 Basophils % 0.3 Nucleated RBC % % 0 Absolute Neutrophils (1.2-6.7) 10^3/uL 12.55 H Absolute Lymphocytes (1.2-3.4) 10^3/uL 1.50 Absolute Monocytes (0.1-0.8) 10^3/uL 0.94 H Absolute Eosinophils (0.0-0.7) 10^3/uL 0.06 Absolute Basophils (0.0-0.2) 10^3/uL 0.05 Sodium (136-145) mmol/L 134 L Potassium (3.5-5.1) mmol/L 4.1 Chloride (98-107) mmol/L 95 L Carbon Dioxide (21.0-32.0) mmol/L 20.4 L Anion Gap (3-11) mmol/L 18.6 H BUN (7-18) mg/dL 34 H Creatinine (0.55-1.02) mg/dL 2.3 H Estimated GFR/1.73 m2 (mL/min/1.73m2) 21.78 Glucose (74-106) mg/dL 167 H Calcium (8.5-10.1) mg/dL 12.2 H* Magnesium (1.8-2.4) mg/dL 1.9 Total Bilirubin (0.2-1.0) mg/dL 0.6 AST (15-37) U/L 33 ALT (14-59) U/L 40 Alkaline Phosphatase (46-116) U/L 115 Troponin I (<0.06) ng/mL < 0.05 Total Protein (6.4-8.2) g/dL 11.1 H Albumin (3.4-5.0) g/dL 5.2 H Lipase (73-393) U/L 284 Urine Color (Yellow) Yellow Urine Clarity (Clear) Sl Cloudy Urine pH (5-8) 6.0 Ur Specific [place] (1.005-1.025) 1.020 Urine Protein (Negative) mg/dL 100 H Urine Ketones (Negative) mg/dL Negative Urine Blood (Negative) Trace-lysed H Urine Nitrite (Negative) Negative Urine Bilirubin (Negative) Negative Urine Urobilinogen (Up TO 0.2) EU/dL 0.2 Ur Leukocyte Esterase (Negative) Negative Urine RBC (0-2) HPF 3-5 H Urine WBC (0-5) HPF 0-2 Ur Epithelial Cells (Negative) HPF Many Urine Crystals (Negative) HPF Few Amorphous Urine Bacteria (Negative) HPF Moderate Urine Casts (Negative) LPF 10-20 Hyaline Urine Mucus (Negative) Trace Ur Culture Indicated? No/Sq. Contamination Urine Glucose (Negative) mg/dL Negative COVID-19 Source SARS-CoV-2 (PCR) (Negative) Range/Units 11/11/20 11/11/20 16:25 16:30 WBC (4.4-10.8) 10^3/uL RBC (3.93-5.22) 10^6/uL Hgb (11.2-15.7) g/dL Hct (36.0-46.0) % MCV (80-95) fL MCH (27.0-33.0) pg MCHC (32.0-36.0) % RDW (11.7-14.6) % Plt Count (130-400) 10^3/uL MPV (8.0-11.0) fL Immature Gran % Neutrophils % Lymphocytes % Monocytes % Eosinophils % Basophils % Nucleated RBC % % Absolute Neutrophils (1.2-6.7) 10^3/uL Absolute Lymphocytes (1.2-3.4) 10^3/uL Absolute Monocytes (0.1-0.8) 10^3/uL Absolute Eosinophils (0.0-0.7) 10^3/uL Absolute Basophils (0.0-0.2) 10^3/uL Sodium (136-145) mmol/L 137 Potassium (3.5-5.1) mmol/L 3.7 Chloride (98-107) mmol/L 102 Carbon Dioxide (21.0-32.0) mmol/L 22.7 Anion Gap (3-11) mmol/L 12.3 H BUN (7-18) mg/dL 30 H Creatinine (0.55-1.02) mg/dL 1.7 H Estimated GFR/1.73 m2 (mL/min/1.73m2) 30.87 Glucose (74-106) mg/dL 99 D Calcium (8.5-10.1) mg/dL 9.1 Magnesium (1.8-2.4) mg/dL Total Bilirubin (0.2-1.0) mg/dL 0.4 AST (15-37) U/L 26 ALT (14-59) U/L 28 Alkaline Phosphatase (46-116) U/L 81 Troponin I (<0.06) ng/mL Total Protein (6.4-8.2) g/dL 8.0 Albumin (3.4-5.0) g/dL 3.7 Lipase (73-393) U/L Urine Color (Yellow) Urine Clarity (Clear) Urine pH (5-8) Ur Specific [place] (1.005-1.025) Urine Protein (Negative) mg/dL Urine Ketones (Negative) mg/dL Urine Blood (Negative) Urine Nitrite (Negative) Urine Bilirubin (Negative) Urine Urobilinogen (Up TO 0.2) EU/dL Ur Leukocyte Esterase (Negative) Urine RBC (0-2) HPF Urine WBC (0-5) HPF Ur Epithelial Cells (Negative) HPF Urine Crystals (Negative) HPF Urine Bacteria (Negative) HPF Urine Casts (Negative) LPF Urine Mucus (Negative) Ur Culture Indicated? Urine Glucose (Negative) mg/dL COVID-19 Source Nasal/Nares SARS-CoV-2 (PCR) (Negative) Negative ECG Data Attestation: I personally reviewed and interpreted this ECG (s) as follows: Interpretation: Rate of 130, sinus, no acute ST elevation or depression. KS 137. QTc 417. QRS 74 HPI General Mode of arrival: ambulatory . Date/Time Provider Initiated Documentation: 11/11/20 10:00 . Limitations to Documentation: no limitations . Information obtained by: patient . HPI Narrative: Patient is a 60-year-old female with a history of Crohn's disease with multiple abdominal surgeries and ileostomy for many years presents for diarrhea since yesterday afternoon. She does also admit to a significant amount of crampy abdominal pain, bloating and gas. Related Data Home Medications Medication Instructions Recorded Confirmed topiramate 50 mg tablet 50 mg PO QHS #90 tab 12/29/19 11/11/20 famotidine 20 mg tablet 20 mg PO HS 03/30/20 11/11/20 cetirizine 10 mg capsule 10 mg PO DAILY PRN 08/30/20 11/11/20 Mirena See Rx Instructions .ROUTE .COMPLEX 11/11/20 11/11/20 [id number]-[id number] 1 tab PO DAILY 11/11/20 11/11/20 cholecalciferol (vitamin D3) 25 mcg PO DAILY 11/11/20 11/11/20 clindamycin phosphate 1 applic TOPICAL BID 11/11/20 11/11/20 cyanocobalamin (vitamin B-12) 1,100 mcg IM Q2W 11/11/20 11/11/20 estradiol [Climara] 1 patch TOPICAL QWEEK 11/11/20 11/11/20 estradiol [Estrace] 1 applic VAGINAL DAILY 11/11/20 11/11/20 levothyroxine 50 mcg PO DAILY 11/11/20 11/11/20 magnesium 400 mg PO DAILY 11/11/20 11/11/20 oxycodone 5 mg PO Q6H PRN #7 tab 11/11/20 potassium chloride 20 meq PO DAILY 11/11/20 11/11/20 propranolol 10 mg PO DAILY 11/11/20 11/11/20 rizatriptan 10 mg PO DAILY PRN 11/11/20 11/11/20 tacrolimus 1 applic TOPICAL PRN PRN 11/11/20 11/11/20 triamcinolone acetonide 1 applic TOPICAL BID 11/11/20 11/11/20 valacyclovir 1,000 mg PO BID 11/11/20 11/11/20 zaleplon 10 mg PO PRN PRN 11/11/20 11/11/20 Previous Rx's Medication Instructions Recorded topiramate 50 mg tablet 50 mg PO QHS #90 tab 12/29/19 oxycodone 5 mg PO Q6H PRN #7 tab 11/11/20 Allergies Allergy/AdvReac Type Severity Reaction Status Date / Time NSAIDS (Non-Steroidal Allergy Verified 11/11/20 10:37 Anti-Inflamma baclofen AdvReac Intermediate Headache Verified 11/11/20 10:37 ibuprofen AdvReac Intermediate AVOID R/T Verified 11/11/20 10:37 CROHNS Review of Systems All systems reviewed & are unremarkable except as noted in HPI and below Constitutional Constitutional: Reports as per HPI, Denies chills and Denies fever(s) Eyes Eyes: Denies blurry vision ENT Ears, Nose, Mouth, and Throat: Denies dizziness, Denies sore throat and Denies throat swelling Cardiovascular Cardiovascular: Denies chest pain and Reports dyspnea Respiratory Respiratory: Denies cough and Reports dyspnea Gastrointestinal Gastrointestinal: Reports abdominal pain, Reports diarrhea and Denies vomiting Genitourinary Genitourinary: Denies hematuria and Denies dysuria Musculoskeletal Musculoskeletal: Denies back pain and Denies numbness Integumentary/Breasts Skin/Breast: Denies lesions and Denies rash Neurologic Neurologic: Denies dizziness, Denies localized weakness and Denies numbness Allergic/Immunologic Allergic/Immunologic: Denies throat swelling [facility] Medical History Aortic stenosis, moderate Bicuspid aortic valve Chronic insomnia Chronic kidney disease Crohn's disease GERD (gastroesophageal reflux disease) Herpes labialis Hypothyroidism Migraine headache with aura Migraine headache without aura Vaginitis Vitamin B12 deficiency Social History Smoking/Tobacco Use Status: Former Tobacco Use Smoking risk assessment performed?: Yes Alcohol Intake: never Drug use: Never Household members: spouse Current gender identity: female What is your relationship status?: Panel score (0-1 are the most socially isolated patients): 1 Do you feel safe at home: Yes Do you feel safe in your relationship?: Yes Exam Const General: cooperative, uncomfortable, no acute distress and other (restless) Nutritional Appearance: thin Orientation: alert, awake and oriented x3 HENMT Head: normal to inspection Face and sinus: normal facial exam Eyes General: appearance normal, both eyes and all related structures EOM: EOM intact bilaterally Neck Neck: normal visual inspection and No submandibular swelling Lymphatic: no lymphadenopathy noted Chest Chest: normal inspection of the chest and no tenderness Resp Effort & Inspection: normal respiratory effort and able to speak in complete sentences Auscultation: clear to auscultation bilaterally Cardio Rate: regular rate Rhythm: regular rhythm GI Inspection: normal to inspection Palpation: soft, not firm, not rigid and tender in the LLQ, in the RLQ and suprapubicly Auscultation: hypoactive bowel sounds Skin General skin exam: no rashes or lesions noted Neuro General: patient alert, patient awake and patient oriented x3 Cognition: normal cognition Speech: speech normal Motor: muscle tone normal throughout Sensory Exam: no sensory deficits noted Extrem General: normal to inspection, full ROM, capillary refill normal, no calf tenderness bilaterally and no edema Psych Appearance: grossly normal Mental Status: mental status grossly normal Speech and Movement: speech and movement normal Affect: normal affect
[2020-11-11 11:12] LABS: Abs Immature Grans 0.09 10^3/uL (0.0-0.06); Absolute Eosinophil Count 0.06 10^3/uL (0.0-0.7); Absolute Monocyte Count 0.94 10^3/uL (0.1-0.8); Absolute Neutrophil Count 12.55 10^3/uL (1.2-6.7); Basophils % 0.3; Eosinophils % 0.4; HCT 49.1 % (36.0-46.0); HGB 16.2 g/dL (11.2-15.7); Immature Grans % 0.6; Lymphocytes % 9.9; MCH 31.6 pg (27.0-33.0); MCV 95.9 fL (80-95); MPV 9.5 fL (8.0-11.0); Monocytes % 6.2; Neutrophils % 82.6; Nucleated RBC 0 %; Platelet Count 274 10^3/uL (130-400); RBC 5.12 10^6/uL (3.93-5.22); RDW 12.1 % (11.7-14.6); RDW-SD 42.6 fL; WBC 15.19 10^3/uL (4.4-10.8)
[2020-11-11 11:13] LABS: Absolute Basophil Count 0.05 10^3/uL (0.0-0.2)
[2020-11-11 11:27] LABS: ALT 40 U/L (14-59); AST 33 U/L (15-37); Albumin 5.2 g/dL (3.4-5.0); Alkaline Phosphatase 115 U/L (46-116); Anion Gap 18.6 mmol/L (3-11); BUN 34 mg/dL (7-18); Bilirubin, Total 0.6 mg/dL (0.2-1.0); CO2 20.4 mmol/L (21.0-32.0); CREATININE 2.3 mg/dL (0.55-1.02); Chloride 95 mmol/L (98-107); Estimated GFR 21.78 (mL/min/1.73m2); Glucose 167 mg/dL (74-106); Lipase 284 U/L (73-393); Magnesium 1.9 mg/dL (1.8-2.4); Potassium 4.1 mmol/L (3.5-5.1); Sodium 134 mmol/L (136-145); Total Protein 11.1 g/dL (6.4-8.2)
[2020-11-11 11:30] LABS: Troponin I < 0.05 ng/mL (<0.06)
[2020-11-11] MEDS: diazePAM 5 MG TAB PO (11:30)
[2020-11-11] MEDS: Normal Saline 1,000 ML 1000 ML IV ×3 (11:30→16:30)
--- NOTE | 2020-11-11 11:30 | DI.CT_ITS ---
Exam(s) CT CHEST/ABD/PEL WO EXAM: CT CHEST/ABD/PEL WO CLINICAL HISTORY: sob, abd pain, diarrhea. TECHNIQUE: Imaging Protocol: Axial computed tomography images with coronal and sagittal reformatted images were created and reviewed CONTRAST MATERIAL: Intravenous: none Oral: Yes COMPARISON: CR CHEST 2 VIEWS PA,LAT from 03/16/2015 FINDINGS: CHEST: LUNGS: There are small nodular infiltrates therein inferior aspect of the right middle lobe. There i s a subtle noncalcified nodular infiltrate in the right upper lobe measuring 3 millimeters. Mild foc al pleural thickening over the lateral aspect of the right upper lobe is noted. No pleural effusion. In the opposite-left lung there are benign-appearing increased markings in the lingular segment. No significant focal findings in the left lower lobe. No pleural effusion on either side. No focal fin dings in trachea and mainstem bronchi. MEDIASTINUM: No obvious hilar nor mediastinal adenopathy. CARDIAC: Heart size is normal. There is no pericardial effusion.The ascending thoracic aorta is dila larry, exhibiting diameter 4 cm. Diameter of the aortic arch is upper normal. Diameter of descending thoracic aorta is upper normal. Cannot assess for dissection without IV contrast. OSSEOUS: No significant osseous lesions.. ABDOMEN: There is no ascites. There is a right-sided ileostomy. Colon is surgically absent. Oral contrast h as progressed to the level of the ileostomy bag. There is no evidence of hernia at this level nor el sewhere in the abdominal wall. No mesenteric swirl sign. No free air. No free fluid. No abscess. LIVER: no obvious focal hepatic lesions evident on this noninfused study. GALLBLADDER/BILIARY: There is a solitary tiny hyperdense focus on the dependent wall of the gallbladd er which is probably a tiny gallstone. No gallbladder wall edema. No pericholecystic fluid. CBD is not dilated. PANCREAS: No evidence of obvious pancreatic mass nor dilatation of the pancreatic duct. SPLEEN: Spleen is not enlarged. No obvious intrasplenic lesions. ADRENALS: There are no significant adrenal masses. KIDNEYS: There is a 1.7 x 1.7 cm benign exophytic cyst off the superior pole of the left kidney. The re are no other significant focal renal findings. No calculi. No hydronephrosis. No hydroureter.. No obvious abnormality in the nondistended urinary bladder ABDOMINAL AORTA: Abdominal aorta is not enlarged. LYMPH NODES: There is no retroperitoneal nor para-aortic adenopathy. ABDOMINAL WALL/GI: No evidence of significant anterior abdominal wall nor inguinal hernia. No evidence of bowel obstruction. PELVIS: LYMPH NODES: There is no intrapelvic nor inguinal adenopathy. GI: Appendix is surgically absent.Previous colectomy. URINARY BLADDER: No calculi nor obvious masses evident REPRODUCTIVE: IUD in the uterine canal appears to be in satisfactory position. No abnormal adnexal m asses. No free fluid in the pelvis. OSSEOUS: No significant osseous lesions. IMPRESSION: 1. Previous colectomy. Right ileostomy. No bowel obstruction. No free air. No abscess. No ascite s. 2. Cholelithiasis. No obvious acute cholecystitis nor dilatation of the biliary tree. 3. Solitary benign cyst superior pole left kidney. No other focal renal findings. No hydronephrosis . 4. IUD in satisfactory position in the uterine canal. No abnormal adnexal findings. No free fluid in the pelvis. 5. Nodular infiltrates in the right middle lobe. No pleural effusions. 7. Dilated ascending thoracic aorta exhibiting maximum diameter of 4 cm. Cannot assess for dissecti on without IV contrast. No pericardial effusion. RADIATION DOSE DELIVERED: 1,044.96mGy.cm Total DLP DATA REPOSITORY: All CT scans at this facility are submitted to the National Radiology Data Registry (NRDR) Dose Index Registry (DIR) with the [employer] ([employer]). RADIATION OPTIMIZATION: All CT scans at this facility use at least one of these dose optimization te chniques: automated exposure control; mA and/or kV adjustment per patient size (includes targeted exa ms where dose is matched to clinical indication); or iterative reconstruction.
[2020-11-11 11:33] LABS: Calcium 12.2 mg/dL (8.5-10.1)
[2020-11-11] MEDS: Ondansetron 4 MG/2 ML VIAL IVP (11:34)
[2020-11-11 12:48] LABS: Bilirubin Negative (Negative); Blood Trace-lysed (Negative); Clarity Sl Cloudy (Clear); Glucose Negative (Negative); Ketones Negative (Negative); Leukocyte Esterase Negative (Negative); Nitrite Negative (Negative); Urobilinogen 0.2 EU/dL (Up TO 0.2)
[2020-11-11 13:01] LABS: Epithelial Cells Many HPF (Negative); WBC 0-2 HPF (0-5)
[2020-11-11 13:02] LABS: Bacteria Moderate HPF (Negative); C & S Indicated? No/Sq. Contamination; Casts 10-20 Hyaline LPF (Negative); Crystals Few Amorphous HPF (Negative); Mucus Trace (Negative)
[2020-11-11] MEDS: Omnipaque 350 MG/ML 50 ML BTL PO (15:08)
[2020-11-11] MEDS: Breeza Beverage 473 ML BTL PO (15:11)
[2020-11-11 16:47] LABS: Source Nasal/Nares
[2020-11-11 17:08] LABS: ALT 28 U/L (14-59); AST 26 U/L (15-37); Albumin 3.7 g/dL (3.4-5.0); Alkaline Phosphatase 81 U/L (46-116); Anion Gap 12.3 mmol/L (3-11); BUN 30 mg/dL (7-18); Bilirubin, Total 0.4 mg/dL (0.2-1.0); CO2 22.7 mmol/L (21.0-32.0); CREATININE 1.7 mg/dL (0.55-1.02); Calcium 9.1 mg/dL (8.5-10.1); Chloride 102 mmol/L (98-107); Estimated GFR 30.87 (mL/min/1.73m2); Glucose 99 mg/dL (74-106); Potassium 3.7 mmol/L (3.5-5.1); Sodium 137 mmol/L (136-145)
[2020-11-11 17:51] LABS: COVID-19 PCR Negative (Negative)
[2020-11-11] MEDS: Ondansetron O.D.T. 4 MG TABEF, 3 TABS/BTL PO (18:45)
[2020-11-12 23:25] LABS: Campylobacter PCR Negative (Negative); Salmonella PCR Negative (Negative); Shiga Toxin PCR Negative (Negative); Shigella/Enteroinvasive Ecoli Negative (Negative)
== END 2020-11-11 18:55 | disposition home or self-care (01) ==
PROVIDERS: Emergency Provider Physician Assistant; PCP Family Medicine
DX: R19.7 Diarrhea, unspecified (principal); E86.0 Dehydration; R06.02 Shortness of breath
CPT/HCPCS: 71250; 80053; 83690; 87505; 87635; 93005; 96361; 96374; 96375; 96376; 99284; 74176; 81003; 81015; 83735; 84484; 85025; 93010; J2405; Q9967

== ENCOUNTER 2020-12-15 02:15 | Outpatient (CLI) | payer MEDICAID, SELFPAY ==
[2012-05-13 09:14] VITALS: BP 98/60; BP 98/70; PULSE 76
--- NOTE | 2020-12-15 07:34 | DI.US_ITS ---
APPROVED REPORT EXAM: Comprehensive 2D, Doppler, and color-flow Echocardiogram Patient Location: Out-Patient Buyer Tobacco Head: Jenna Jett RDCS (AE) Indications: Aortic stenosis, KAMARA, Dilated ascending aorta Other Information Study Quality: Adequate Conclusion Normal left ventricular wall thickness and chamber size. Estimated ejection fraction is 55 to 60%. There are no segmental wall motion abnormalities Normal right ventricular size and systolic function Both atria are normal in size Aortic valve appears trileaflet and moderately sclerotic. There is moderate to severe aortic stenosi s. Peak gradient is 40, mean gradient 24. Calculated aortic valve area is 0.86 cm??. There is no a ortic regurgitation Mildly thickened mitral leaflets with trace regurgitation Normal tricuspid valve with trace regurgitation. Normal estimated right ventricular systolic pressur e Mildly dilated ascending aorta measuring 3.86 cm Compared to an echocardiogram from January 2020, aortic valve gradients are similar. Valvular steno sis appears moderate by gradients, severe by calculated area, no interval change Wall motion Left Ventricle The left ventricle is normal size. The left ventricular systolic function is normal. The left ventric ular ejection fraction is within the normal range. There is normal left ventricular wall thickness. T here is normal LV segmental wall motion. There is no ventricular septal defect visualized. LVEF is 59 %. Right Ventricle The right ventricle is normal size. The right ventricular systolic function is normal. The RVSP is 22 .8 mmHg. Atria The left atrium size is normal. The right atrium size is normal. The interatrial septum is intact wit h no evidence for an atrial septal defect. Aortic Valve The Aortic valve is moderately sclerotic. Aortic valve is calcified. Aortic valve is trileaflet. Mode rate to severe aortic stenosis. Peak aortic valve gradient is 40.6mmHg. Mean gradient is 24 mmHg High est mean aortic valve gradient is 24.2mmHg. Calculated JAMES by the continuity equation is .86cm2. No a ortic regurgitation is present. Mitral Valve Mitral valve leaflets are mildly thickened. No evidence of mitral valve stenosis. Trace mitral regurg itation. Tricuspid Valve The tricuspid valve is normal in structure. There is no tricuspid valve stenosis. Trace tricuspid reg urgitation. Pulmonic Valve The pulmonary valve is normal in structure. There is no pulmonic valvular stenosis. There is no pulmo marlena valvular regurgitation. Great Vessels The aortic root is normal in size. The ascending aorta is moderately dilated.3.86 cm Aortic arch is n ormal in caliber. IVC is normal in size and collapses >50% with inspiration. Pericardium There is no pericardial effusion. 2D Dimensions IVSD d PLAX 0.91 cm F: 0.6-1.0 LV Vol A2C d MOD 73.7 mL LVPW d PLAX 0.98 cm F: 0.6 - 1.0 LV Vol A4C d MOD 61.8 mL LVID d PLAX 4.33 cm F: 3.8 - 5.2 LA vol/ BSA A2C s A-L 14.9 mL/m2 LVDs 2.80 cm F: 2.2 - 3.5 LA vol/ BSA A4C s A-L 18.4 mL/m2 Ao Root d 2.55 cm F: 2.7 - 3.3 LA Vol/ BSA Biplane s A-L 17.8 mL/m2 RA Area A4C 9.33 cm2 LA Area A4C s MOD 12.94 cm2 RA Vol/ BSA A4C s A-L 11.7 mL/m2 LA Area A2C s MOD 10.85 cm2 Ao Asc Diam d 3.86 cm F: 2.3 - 3.1 LV EF A4C MOD 58.3 % LV EF Teichholz 63.9 % LV EF A2C MOD 59.2 % LVEF (Reddy's) 57.82 % F: 54 - 74 LV EF Biplane MOD 57.8 % LV Volume 54.80 mL F: 46 - 106 SV 39.04 mL LV Volume Index 34.25 mL/m2 F: 29 - 61 SV Index 24.34 mL/m2 LV Vol Biplane MOD 67.5 mL FS 34.50 % M-Mode TAPSE 1.48 cm (M/F) >1.7 LV Diastology MV E' medial 0.101 (>0.07 m/s) E/A Ratio 1.0 LV E/e MED 7.55 (<14) MV E Vmax 0.77 (0.4-1.3 m/s) MV E' lateral 0.082 (>0.1 m/s) MV A Vmax 0.80 (0.4-1.3 m/s) LV E/e LAT 9.35 (<14) MV E/A Ratio 0.93 MV E/E' medial 7.57 MV E/E' lateral 9.38 Aortic Valve LVOT Area 2.46 cm2 AoV Area Vmax 0.86 cm2 LVOT Vmax 1.12 m/s AoV Area/ BSA (Vmax) 0.54 cm2/m2 LVOT Mean Fabrizio. 0.72 m/s JAMES Mean Fabrizio. 0.75 cm2 LVOT Peak Grad 5.0 mmHg JAMES Mean Fabrizio. Index 0.47 cm2/m2 LVOT Mean Grad 2.4 mmHg LVOT VTI 0.229 m LVOT Diam s 1.75 cm AoV Vmax 3.19 m/s Velocity Ratio 0.35 AoV Mean Fabrizio. 2.35 m/s AoV Peak Grad 40.6 mmHg LVOT SV 56.27 mL AoV Mean Grad 24.2 mmHg AoV VTI 0.629 m AoV Area VTI 0.89 cm2 AoV Area/ BSA (VTI) 0.56 cm/m2 Mitral Valve MV DT 257 (160-240 msec) MV PHT 75 msec MV Area PHT 2.95 cm2 MV VTI 0.223 m MV Area VTI 2.52 (4.0-6.0 cm2) Pulmonary Valve PV Vmax 2.23 (0.5-1.5 m/s) RVOT Peak Gr. 1.94 mmHg PV Peak Grad 19.9 mmHg RVOT Mean Gr. 1.00 mmHg PV Mean Grad 12.6 mmHg RVOT Diam s 1.91 cm (M/F) 2.1-3.5 PV VTI 0.460 m RVOT VTI 0.131 m PV SV 134.2 mL RVOT Vmax 0.70 m/s Tricuspid Valve TR Peak Grad 19.7 mmHg TR Vmax 2.22 m/s RA Pressure 3.00 mmHg RVSP (TR) 22.8 mmHg
== END 2020-12-15 02:35 ==
PROVIDERS: PCP Family Medicine; Visit Provider Family Medicine
DX: I35.0 Nonrheumatic aortic (valve) stenosis (principal); R06.09 Other forms of dyspnea; I77.810 Thoracic aortic ectasia; R42 Dizziness and giddiness
CPT/HCPCS: 93306

== ENCOUNTER 2021-05-12 03:39 | Outpatient (CLI) | payer MEDICAID, SELFPAY ==
[2012-05-13 09:14] VITALS: BP 98/60; BP 98/70; PULSE 76
[2021-05-12 16:07] LABS: Abs Immature Grans 0.03 10^3/uL (0.0-0.06); Absolute Basophil Count 0.03 10^3/uL (0.0-0.2); Absolute Monocyte Count 0.47 10^3/uL (0.1-0.8); Absolute Neutrophil Count 6.14 10^3/uL (1.2-6.7); Basophils % 0.4; Eosinophils % 1.2; HCT 36.4 % (36.0-46.0); HGB 11.7 g/dL (11.2-15.7); Immature Grans % 0.4; Lymphocytes % 17.1; MCH 31.9 pg (27.0-33.0); MCHC 32.1 % (32.0-36.0); MCV 99.2 fL (80-95); MPV 9.6 fL (8.0-11.0); Monocytes % 5.8; Neutrophils % 75.1; Nucleated RBC 0 %; Platelet Count 205 10^3/uL (130-400); RBC 3.67 10^6/uL (3.93-5.22); RDW 13.1 % (11.7-14.6); RDW-SD 47.6 fL; WBC 8.17 10^3/uL (4.4-10.8)
[2021-05-12 16:34] LABS: ALT 52 U/L (14-59); AST 38 U/L (15-37); Alkaline Phosphatase 79 U/L (46-116); Anion Gap 11.4 mmol/L (3-11); BUN 29 mg/dL (7-18); Bilirubin, Direct 0.1 mg/dL (0.0-0.2); Bilirubin, Total 0.3 mg/dL (0.2-1.0); C-Reactive Protein 0.42 mg/dL (0.0-0.3); CO2 20.6 mmol/L (21.0-32.0); CREATININE 1.4 mg/dL (0.55-1.02); Calcium 8.9 mg/dL (8.5-10.1); Chloride 105 mmol/L (98-107); Estimated GFR 38.62 (mL/min/1.73m2); Glucose 100 mg/dL (74-106); Potassium 4.4 mmol/L (3.5-5.1); Sodium 137 mmol/L (136-145); Total Protein 7.6 g/dL (6.4-8.2)
== END 2021-05-12 03:40 | disposition home or self-care (01) ==
LOC: LBO 03:40
PROVIDERS: PCP Family Medicine; Visit Provider Nurse Practitioner Family
DX: K52.9 Noninfective gastroenteritis and colitis, unspecified (principal); K50.919 Crohn's disease, unspecified, with unspecified complications; Z79.899 Other long term (current) drug therapy
CPT/HCPCS: 36415; 80053; 80076; 85025; 86140

== ENCOUNTER 2021-05-30 18:05 | Outpatient (REF) | payer MEDICAID, SELFPAY ==
[2012-05-13 09:14] VITALS: BP 98/60; BP 98/70; PULSE 76
--- NOTE | 2021-05-30 15:30 | PAPFT_PTH ---
PATIENT: Earline Hines LOC: [facility]#:[id number] AGE/SX: 61/F ROOM: RE05/30/[address]: Lindsey Clay : 1960 BED: DIS: 05/30/2021 SPEC #: [id number] RECD: 05/30/21 18:14 STATUS: LESLEY RELashon #: [id number] TAVO: 05/30/21 15:[address]: Lindsey Clay DEPT: [facility] Cytology RECD BY: Jennifer Caceres Tissues: 1 - CX/ENDOCX FOR PAP SMEARS Procedures: PAP THIN PREP/UVM Screening HPV DNA PROBE Comments: [id number]
== END 2021-05-30 18:06 | disposition home or self-care (01) ==
LOC: NCHCN 18:05
PROVIDERS: PCP Family Medicine; Visit Provider Family Medicine
DX: Z12.4 Encounter for screening for malignant neoplasm of cervix (principal); Z11.51 Encounter for screening for human papillomavirus (HPV); Z01.419 Encounter for gynecological examination (general) (routine) without abnormal findings; Z00.00 Encounter for general adult medical examination without abnormal findings
CPT/HCPCS: 88142; 87624

== ENCOUNTER 2021-06-28 00:18 | Outpatient (CLI) | payer MEDICAID, SELFPAY ==
[2012-05-13 09:14] VITALS: BP 98/60; BP 98/70; PULSE 76
--- NOTE | 2021-06-28 09:16 | DI.CT_ITS ---
Exam(s) CT CHEST WO EXAM: CT CHEST WO CLINICAL HISTORY: F/U MULTIPLE PULMONARY NODULES ON CT OF 11/11/2020, R91.8. TECHNIQUE: Multi planar reconstructions were performed. CONTRAST MATERIAL: None COMPARISON: CT CT CHEST/ABD/PEL WO from 11/11/2020 FINDINGS: CHEST: LUNGS: Previously described multiple small nodular infiltrates in the right middle lobe unchanged in size and number from October 2020. Mild pleural thickening over the right lobe unchanged. There is a tiny 2-3 millimeter noncalcified p leural-based nodule in the right lower lobe, more evident than previous. No pleural effusions. In the opposite-left lung benign-appearing increased markings in superior lingular segment are unchan ged. In the inferior lingular segment there also some mild infiltrate markings, also stable. There are no new significant focal findings in the left lower lobe. No pleural effusion. MEDIASTINUM: There is no obvious hilar nor mediastinal adenopathy. Visualized thyroid unremarkable.Va scular variant again noted. 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 The left subclavian v ein drains into a vein on the left of the midline which crosses adjacent and inferior to the aortic a rch and left main pulmonary artery to into the atrium. On the right side returning blood from the up per extremity drains into a vein which crosses anterior to the aortic arch to drain into the vein on the left side of the mediastinum described above which itself drains into the atrium. The azygos arc h drains into a thin IVC which drains into the right ventricle. CARDIAC: Heart size is normal. There is no pericardial effusion.Ascending thoracic aorta is again no larry be dilated, again measuring 4 cm diameter. VISUALIZED UPPER ABDOMEN:No adrenal masses. There is an exophytic 1.5 cm cyst in the superior aspect of the left kidney again noted. Spleen size normal. OSSEOUS: No significant osseous lesions.. IMPRESSION: 1. Compared to CT scan 11/11/2020 there is stable appearance of the previously described nodular infi ltrates in the right middle lobe, lingular segment of the left lung. 2. No new significant pulmonary findings and no pleural effusions nor new intrathoracic adenopathy. 3. Enlarged ascending thoracic aorta with diameter 4 cm again noted. 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 RADIATION DOSE DELIVERED: 516.11mGy.cm Total DLP DATA REPOSITORY: All CT scans at this facility are submitted to the National Radiology Data Registry (NRDR) Dose Index Registry (DIR) with the [employer] (ACR). RADIATION OPTIMIZATION: All CT scans at this facility use at least one of these dose optimization te chniques: automated exposure control; mA and/or kV adjustment per patient size (includes targeted exa ms where dose is matched to clinical indication); or iterative reconstruction.
== END 2021-06-28 00:38 ==
PROVIDERS: PCP Family Medicine; Visit Provider Family Medicine
DX: R91.8 Other nonspecific abnormal finding of lung field (principal); I77.810 Thoracic aortic ectasia
CPT/HCPCS: 71250

== ENCOUNTER 2021-07-05 18:18 | Outpatient (REF) | payer MEDICAID, SELFPAY ==
[2012-05-13 09:14] VITALS: BP 98/60; BP 98/70; PULSE 76
[2021-07-05 19:44] LABS: Bilirubin Negative (Negative); Blood Negative (Negative); Clarity Sl Cloudy (Clear); Glucose Negative (Negative); Ketones Trace mg/dL (Negative); Leukocyte Esterase Negative (Negative); Nitrite Negative (Negative); Specific Gravity >= 1.030 (1.005-1.025); Urobilinogen 0.2 EU/dL (Up TO 0.2)
[2021-07-05 19:55] LABS: Casts Negative LPF (Negative); RBC Negative HPF (0-2)
[2021-07-05 19:59] LABS: WBC 0-2 HPF (0-5)
[2021-07-05 20:01] LABS: C & S Indicated? No/Sq. Contamination
[2021-07-05 20:02] LABS: Bacteria Many HPF (Negative); Crystals Mod Calcium Oxalate HPF (Negative); Epithelial Cells Many HPF (Negative); Mucus Negative (Negative)
[2021-07-05 20:14] LABS: COMMENT (LAB VIEW ONLY) 494.55 mg/dL; Microalb ug/mg Crea 4.8 ug/mg Cr
[2021-07-05 22:39] LABS: Anion Gap 11.2 mmol/L (3-11); BUN 26 mg/dL (7-18); CO2 22.8 mmol/L (21.0-32.0); CREATININE 1.3 mg/dL (0.55-1.02); Calcium 8.5 mg/dL (8.5-10.1); Calculated LDL 30 mg/dL (<100); Chloride 107 mmol/L (98-107); Cholesterol 161 mg/dL (<200); Estimated GFR 41.92 (mL/min/1.73m2); Glucose 99 mg/dL (74-106); HDL Cholesterol 58 mg/dL (40-60); Potassium 3.9 mmol/L (3.5-5.1); Sodium 141 mmol/L (136-145); TSH (W/Ref FT4) 1.45 uIU/mL (0.36-3.74); Triglyceride 366 mg/dL (<150)
[2021-07-07 10:09] LABS: HIV-1/2 Ag & Ab Screen Negative (Negative)
== END 2021-07-05 18:19 | disposition home or self-care (01) ==
LOC: NCHCN 18:18
PROVIDERS: PCP Family Medicine; Visit Provider Family Medicine
DX: E03.9 Hypothyroidism, unspecified (principal); Z13.220 Encounter for screening for lipoid disorders; Z11.4 Encounter for screening for human immunodeficiency virus [HIV]; Z00.00 Encounter for general adult medical examination without abnormal findings; N18.30 Chronic kidney disease, stage 3 unspecified
CPT/HCPCS: 80048; 80061; 87389; 81003; 81015; 82043; 82570; 84443

== ENCOUNTER → 2022-02-06 01:20 | Outpatient (CLI) | payer MEDICAID, SELFPAY ==
[2012-05-13 09:14] VITALS: BP 98/60; BP 98/70; PULSE 76
--- NOTE | 2022-02-06 | DI.MAMMO_ITS ---
Exam(s) MAMMO SCREENING EXAM: MAMMO SCREENING CLINICAL HISTORY: SCREENING MAMMO FOR BREAST CANCER Z12.31 TECHNIQUE: Mammograms were interpreted according to the usual protocol including computer analysis w [employer] CAD system, tomosynthesis and C-view imaging. COMPARISON: 2012 through 2019 FINDINGS: The breasts are composed of scattered fibroglandular densities, Breast Density category B. No suspicious masses or suspicious microcalcifications are seen. No skin thickening or abnormal axillary lymph nodes are seen. There has been no significant change from prior exams. IMPRESSION: BI-RADS Category 1, Negative mammogram Yearly screening mammography is recommended. Breast Density - Category B, scattered fibroglandular densities. A negative radiographic report should not delay biopsy if a dominant or clinically suspicious mass is present. Up to ten percent of cancers are not identified on mammography. A negative report may reinforce clinical impression. Adenosis and dense breasts may obscure an underlying neoplasm. False positive reports average 6 to 10%. Patient will receive a letter notifying them of these results.
== END ==
PROVIDERS: PCP Family Medicine; Visit Provider Family Medicine
DX: Z12.31 Encounter for screening mammogram for malignant neoplasm of breast (principal)
CPT/HCPCS: 77063; 77067

== ENCOUNTER 2022-03-22 01:58 | Outpatient (CLI) | payer MEDICAID, SELFPAY ==
[2012-05-13 09:14] VITALS: BP 98/60; BP 98/70; PULSE 76
--- NOTE | 2022-03-22 14:00 | DI.US_ITS ---
APPROVED REPORT EXAM: Comprehensive 2D, Doppler, and color-flow Echocardiogram Patient Location: Out-Patient Client Resolution Specialist: Jenna Jett RDCS (AE) Indications: f/u aortic stenosis Other Information Study Quality: Adequate Conclusion Normal left ventricular wall thickness and chamber size. Estimated ejection fraction is 55 to 60%. Wall motion is normal Normal right ventricular size and systolic function Both atria are normal in size The aortic valve is thickened. Number of leaflets could not be accurately determined. There is mode rate aortic stenosis. Peak gradient is 52, mean is 32 mmHg. Calculated aortic valve area is 1.04 cm ??. There is no aortic regurgitation Normal mitral valve with trace regurgitation Normal tricuspid valve, trace regurgitation. Estimated right ventricular systolic pressure is 20 mmH g Benitez dilated ascending aorta measuring 3.76 cm Wall motion Left Ventricle The left ventricle is normal size. The left ventricular systolic function is normal. The left ventric ular ejection fraction is within the normal range. There is normal left ventricular wall thickness. T here is normal LV segmental wall motion. There is no ventricular septal defect visualized. LVEF is 55 -60%. Right Ventricle The right ventricle is normal size. The right ventricular systolic function is normal. The RVSP is 20 .3 mmHg. Atria The left atrium size is normal. The right atrium size is normal. The interatrial septum is intact wit h no evidence for an atrial septal defect. Aortic Valve Number of aortic valve leaflets could not be assessed. Moderate aortic stenosis. Peak aortic valve g radient is 52.2mmHg. Highest mean aortic valve gradient is 32.3mmHg. Calculated JAMES by the continuity equation is 1.04cm2. No aortic regurgitation is present. Mitral Valve The mitral valve is normal in structure. No evidence of mitral valve stenosis. Trace mitral regurgita tion. Tricuspid Valve The tricuspid valve is normal in structure. There is no tricuspid valve stenosis. Trace tricuspid reg urgitation. Pulmonic Valve Pulmonic valve is not well visualized. There is no pulmonic valvular stenosis. There is no pulmonic v alvular regurgitation. Great Vessels The aortic root is normal in size. The ascending aorta is mildly dilated. Aortic arch is not well vis ualized. IVC is normal in size and collapses >50% with inspiration. Pericardium There is no pericardial effusion. 2D Dimensions IVSD d PLAX 0.81 cm F: 0.6-1.0 LV Vol A2C d MOD 68.9 mL LVPW d PLAX 0.83 cm F: 0.6 - 1.0 LV Vol A4C d MOD 62.6 mL LVID d PLAX 4.25 cm F: 3.8 - 5.2 LA vol/ BSA A2C s A-L 15.0 mL/m2 LVDs 3.00 cm F: 2.2 - 3.5 LA vol/ BSA A4C s A-L 15.8 mL/m2 Ao Root d 2.62 cm F: 2.7 - 3.3 LA Vol/ BSA Biplane s A-L 15.9 mL/m2 RA Area A4C 7.94 cm2 LA Area A4C s MOD 11.72 cm2 RA Vol/ BSA A4C s A-L 8.1 mL/m2 LA Area A2C s MOD 11.06 cm2 Ao Asc Diam d 3.76 cm F: 2.3 - 3.1 LV EF A4C MOD 55.2 % LV EF Teichholz 56.5 % LV EF A2C MOD 55.0 % LVEF (Reddy's) 53.09 % F: 54 - 74 LV EF Biplane MOD 53.1 % LV Volume 53.08 mL F: 46 - 106 SV 34.95 mL LV Volume Index 32.56 mL/m2 F: 29 - 61 SV Index 21.40 mL/m2 LV Vol Biplane MOD 65.8 mL FS 29.25 % M-Mode TAPSE 1.41 cm (M/F) >1.7 LV Diastology MV E' medial 0.078 (>0.07 m/s) E/A Ratio 0.7 LV E/e MED 9.15 (<14) MV E Vmax 0.72 (0.4-1.3 m/s) MV E' lateral 0.078 (>0.1 m/s) MV A Vmax 1.10 (0.4-1.3 m/s) LV E/e LAT 9.15 (<14) MV E/A Ratio 0.63 MV E/E' medial 9.20 MV E/E' lateral 9.20 Aortic Valve LVOT Area 2.97 cm2 AoV Area Vmax 1.04 cm2 LVOT Vmax 1.26 m/s AoV Area/ BSA (Vmax) 0.64 cm2/m2 LVOT Mean Fabrizio. 0.85 m/s JAMES Mean Fabrizio. 0.93 cm2 LVOT Peak Grad 6.4 mmHg JAMES Mean Fabrizio. Index 0.57 cm2/m2 LVOT Mean Grad 3.3 mmHg LVOT VTI 0.218 m LVOT Diam s 1.90 cm AoV Vmax 3.61 m/s Velocity Ratio 0.35 AoV Mean Fabrizio. 2.72 m/s AoV Peak Grad 52.2 mmHg LVOT SV 64.97 mL AoV Mean Grad 32.3 mmHg AoV VTI 0.627 m AoV Area VTI 1.04 cm2 AoV Area/ BSA (VTI) 0.63 cm/m2 Mitral Valve MV DT 456 (160-240 msec) MV PHT 132 msec MV Area PHT 1.66 cm2 MV VTI 0.242 m MV Area VTI 2.68 (4.0-6.0 cm2) Pulmonary Valve PV Vmax 1.08 (0.5-1.5 m/s) RVOT Peak Gr. 4.10 mmHg PV Peak Grad 4.6 mmHg RVOT Mean Gr. 2.15 mmHg PV Mean Grad 3.3 mmHg RVOT VTI 0.136 m PV VTI 0.200 m RVOT Vmax 1.01 m/s Tricuspid Valve TR Peak Grad 17.2 mmHg TR Vmax 2.08 m/s RA Pressure 3.00 mmHg RVSP (TR) 20.3 mmHg
== END 2022-03-22 02:18 ==
PROVIDERS: PCP Family Medicine; Visit Provider Internal Medicine Cardiovascular Disease
DX: I35.0 Nonrheumatic aortic (valve) stenosis (principal)
CPT/HCPCS: 93306

== ENCOUNTER 2022-04-12 01:11 | Outpatient (CLI) | payer MEDICAID, SELFPAY ==
[2012-05-13 09:14] VITALS: BP 98/60; BP 98/70; PULSE 76
--- NOTE | 2022-04-12 | DI.RAD_ITS ---
Exam(s) XR SHOULDER RT COMPLETE 2+V EXAM: XR SHOULDER RT COMPLETE 2+V CLINICAL HISTORY: TENDINITIS RT SHOULDER, M77.8, PAIN > 6 WKS. TECHNIQUE: 2D digital imaging was performed of the right shoulder. Five images were obtained. AP, Grashey, Y-view and axillary views were obtained. COMPARISON: CR CHEST 2 VIEWS PA,LAT from 10/31/2016 FINDINGS: BONES: No acute fracture is present. No bony destructive lesion is seen. There is stable shortening o f the distal clavicle. This may be postsurgical. It is unchanged. JOINTS: No dislocation present. The glenohumeral joint is well maintained. SOFT TISSUE: Normal. IMPRESSION: No acute abnormality. DATA REPOSITORY: RADIATION DOSE DELIVERED:
== END 2022-04-12 01:31 ==
LOC: DI 01:11
PROVIDERS: PCP Family Medicine; Visit Provider Nurse Practitioner Family
DX: M25.511 Pain in right shoulder (principal); M77.8 Other enthesopathies, not elsewhere classified
CPT/HCPCS: 73030

== ENCOUNTER 2022-06-02 15:02 | Outpatient (REF) | payer MEDICAID, SELFPAY ==
[2012-05-13 09:14] VITALS: BP 98/60; BP 98/70; PULSE 76
[2022-06-02 19:53] LABS: Folate > 20.0 ng/mL (8.6-20.0); TSH (W/Ref FT4) 1.05 uIU/mL (0.36-3.74); Vitamin B12 1023 pg/mL (193-986)
== END 2022-06-02 15:03 | disposition home or self-care (01) ==
LOC: NCHCN 15:02
PROVIDERS: PCP Family Medicine; Visit Provider Family Medicine
DX: E53.8 Deficiency of other specified B group vitamins (principal); E03.9 Hypothyroidism, unspecified
CPT/HCPCS: 82607; 82746; 84443

== ENCOUNTER 2023-01-24 02:55 | Outpatient (CLI) | payer MEDICAID, SELFPAY ==
[2012-05-13 09:14] VITALS: BP 98/60; BP 98/70; PULSE 76
[2023-01-24 09:51] LABS: Abs Immature Grans 0.01 10^3/uL (0.0-0.06); Absolute Basophil Count 0.04 10^3/uL (0.0-0.2); Absolute Eosinophil Count 0.17 10^3/uL (0.0-0.7); Absolute Lymphocyte Count 1.32 10^3/uL (1.2-3.4); Absolute Monocyte Count 0.42 10^3/uL (0.1-0.8); Absolute Neutrophil Count 4.96 10^3/uL (1.2-6.7); Basophils % 0.6; Eosinophils % 2.5; HCT 39.8 % (36.0-46.0); Immature Grans % 0.1; Lymphocytes % 19.1; MCH 30.9 pg (27.0-33.0); MCHC 32.7 % (32.0-36.0); MCV 95 fL (80-95); MPV 9.4 fL (8.0-11.0); Monocytes % 6.1; Neutrophils % 71.6; Platelet Count 196 10^3/uL (130-400); RBC 4.21 10^6/uL (3.93-5.22); RDW 12.3 % (11.7-14.6); RDW-SD 42.5 fL; WBC 6.92 10^3/uL (4.4-10.8)
[2023-01-24 10:19] LABS: ALT 29 U/L (14-59); AST 25 U/L (15-37); Alkaline Phosphatase 75 U/L (46-116); Anion Gap 11.7 mmol/L (3-11); BUN 27 mg/dL (7-18); Bilirubin, Total 0.3 mg/dL (0.2-1.0); CO2 23.3 mmol/L (21.0-32.0); CREATININE 1.3 mg/dL (0.55-1.02); Calcium 9.3 mg/dL (8.5-10.1); Chloride 106 mmol/L (98-107); Estimated GFR 47.08 (mL/min/1.73m2); Glucose 91 mg/dL (74-106); Sodium 141 mmol/L (136-145); Total Protein 8.2 g/dL (6.4-8.2)
[2023-01-24 23:12] LABS: Vitamin D 25 Total 44.6 ng/mL (30-100)
[2023-01-24 23:15] LABS: Vitamin B12 645 pg/mL (193-986)
== END 2023-01-24 02:56 | disposition home or self-care (01) ==
LOC: LBO 02:55
PROVIDERS: PCP Family Medicine; Visit Provider Internal Medicine Rheumatology
DX: L40.50 Arthropathic psoriasis, unspecified (principal); Z79.899 Other long term (current) drug therapy
CPT/HCPCS: 36415; 80053; 82306; 82607; 85025

== ENCOUNTER 2023-03-02 15:14 | Emergency (ER) | payer MEDICAID, SELFPAY ==
[2012-05-13 09:14] VITALS: BP 98/60; BP 98/70; PULSE 76
[2023-03-02 15:18] VITALS: BP 125/93; PULSE 105; RESP 20; TEMP 37.2; O2SAT 100
--- NOTE | 2023-03-02 16:15 | DI.RAD_ITS ---
Exam(s) XR CHEST 2V PA LATERAL EXAM: XR CHEST 2V PA LATERAL CLINICAL HISTORY: cough, shortness of breath. TECHNIQUE: 2D digital imaging was performed. COMPARISON: CR XR SHOULDER RT COMPLETE 2+V from 04/12/2022 FINDINGS: 2 views: Heart size is normal. The mediastinum is not widened. Lungs are clear. No infiltrates nor pleural effusions. Widened right AC joint is unchanged from dedicated shoulder images of 04/12/2022. IMPRESSION: No acute pulmonary findings. DATA REPOSITORY: RADIATION DOSE DELIVERED:
--- NOTE | 2023-03-02 16:15 | RT.EKG_ITS ---
APPROVED REPORT Exam: Resting ECG Reason for Exam: weakness Patient Location: E HR:92 bpm ECG Measurements Heart Rate 92 AXIS IN 129 P 83 QRSd 71 QRS 36 QT 422 T 56 QTc 521 Conclusion Sinus rhythm...normal P axis, V-rate 60- 99 Nonspecific T abnormalities, lateral leads...T <-0.10mV, I aVL V5 V6 Prolonged QT interval...QTc >510mS
[2023-03-02] MEDS: Lactated Ringers 1,000 ML 1000 ML IV ×2 (16:34→18:47)
[2023-03-02] MEDS: Ondansetron 4 MG/2 ML VIAL IVP (16:35)
[2023-03-02 16:39] LABS: Abs Immature Grans 0.03 10^3/uL (0.0-0.06); Absolute Basophil Count 0.02 10^3/uL (0.0-0.2); Absolute Eosinophil Count 0.15 10^3/uL (0.0-0.7); Absolute Lymphocyte Count 1.02 10^3/uL (1.2-3.4); Absolute Neutrophil Count 6.08 10^3/uL (1.2-6.7); Basophils % 0.3; Eosinophils % 1.9; HCT 39.4 % (36.0-46.0); Immature Grans % 0.4; Lymphocytes % 13.1; MCH 31.3 pg (27.0-33.0); MCV 95 fL (80-95); MPV 9.6 fL (8.0-11.0); Monocytes % 6.4; Neutrophils % 77.9; Platelet Count 159 10^3/uL (130-400); RBC 4.15 10^6/uL (3.93-5.22); RDW 14.4 % (11.7-14.6); RDW-SD 49.9 fL
[2023-03-02 16:52] LABS: ALT 231 U/L (14-59); AST 471 U/L (15-37); Albumin 3.8 g/dL (3.4-5.0); Alkaline Phosphatase 118 U/L (46-116); Anion Gap 15.5 mmol/L (3-11); BUN 22 mg/dL (7-18); Bilirubin, Total 0.6 mg/dL (0.2-1.0); CO2 16.5 mmol/L (21.0-32.0); CREATININE 1.2 mg/dL (0.55-1.02); Chloride 103 mmol/L (98-107); Estimated GFR 51.82 (mL/min/1.73m2); Glucose 82 mg/dL (74-106); Magnesium 1.7 mg/dL (1.8-2.4); Potassium 3.9 mmol/L (3.5-5.1); Sodium 135 mmol/L (136-145); Total Protein 8.5 g/dL (6.4-8.2)
[2023-03-02 17:40] LABS: Bilirubin Negative (Negative); Blood Negative (Negative); Clarity Sl Cloudy (Clear); Glucose Negative (Negative); Ketones Trace mg/dL (Negative); Leukocyte Esterase Negative (Negative); Nitrite Negative (Negative); Urobilinogen 0.2 mg/dL (Up to 0.2); pH 5.5 (5-8)
[2023-03-02 17:48] LABS: Bacteria Few HPF (Negative); C & S Indicated? No/Sq. Contamination; Casts Negative LPF (Negative); Crystals Negative HPF (Negative); Epithelial Cells Many HPF (Negative); Mucus Trace (Negative); RBC 0-2 HPF (0-2)
[2023-03-02 18:59] LABS: Creatine Kinase 160 U/L (26-192); Lipase 49 U/L (16-77); Troponin I < 50 ng/L (< or =60)
[2023-03-02] MEDS: Acetaminophen 325 MG TAB 650 MG PO (20:11)
[2023-03-02] MEDS: Albuterol HFA 8 GM 60 PUFF INH IH (20:11)
[2023-03-02] MEDS: Normal Saline Flush 10 ML SYR IVP (20:12)
[2023-03-02] MEDS: Magnesium Oxide 400 MG TAB 800 MG PO (20:12)
[2023-03-02 20:33] LABS: ALT 214 U/L (14-59); AST 456 U/L (15-37); Albumin 2.7 g/dL (3.4-5.0); Alkaline Phosphatase 88 U/L (46-116); Anion Gap 8.8 mmol/L (3-11); BUN 18 mg/dL (7-18); Bilirubin, Total 0.4 mg/dL (0.2-1.0); CO2 20.2 mmol/L (21.0-32.0); CREATININE 1.3 mg/dL (0.55-1.02); Calcium 7.9 mg/dL (8.5-10.1); Chloride 105 mmol/L (98-107); Estimated GFR 47.08 (mL/min/1.73m2); Glucose 194 mg/dL (74-106); Potassium 3.1 mmol/L (3.5-5.1); Sodium 134 mmol/L (136-145); Total Protein 6.4 g/dL (6.4-8.2)
--- NOTE | 2023-03-02 21:00 | NUR.NOTE ---
Referral faxed to [facility] to f/u 03/06/23 for abnormal LFT's, Long QTC.
[2023-03-02] MEDS: Potassium Chloride Liquid 20 MEQ PKT 40 MEQ PO (21:01)
[2023-03-02] MEDS: guaiFENesin/CODEINE PHOSPHATE 10 ML CUP PO (21:01)
--- NOTE | 2023-03-02 21:06 | W.ED.GENAD ---
HPI General Stated Complaint: RespSymp SHRUTI: 3 Date/Time Provider Initiated Documentation: 03/02/23 15:38. HPI Narrative: 62-year-old female with history of rheumatoid arthritis, and Crohn's with ileostomy Presenting with diagnosis of flu earlier this week, symptom onset Sunday feeling dehydrated and weak with cough. States she is not feeling any better. Denies any known fever but has been taking Tylenol jrowep-nqw-lonen for patient. Denies vomiting but has had nausea. Denies diarrhea. Related Data Home Medications Medication Instructions Recorded Confirmed famotidine 20 mg tablet 20 mg PO HS 03/30/20 11/21/22 cetirizine 10 mg capsule (Zyrtec) 10 mg PO DAILY PRN 08/30/20 11/21/22 [id number]-[id number] tablet 1 tab PO DAILY 11/11/20 11/21/22 cholecalciferol (vitamin D3) 25 25 mcg PO DAILY 11/11/20 11/21/22 mcg (1,000 unit) tablet clindamycin phosphate 1 % topical 1 applic topical BID 11/11/20 11/21/22 solution cyanocobalamin (vitamin B-12) 1,100 mcg IM Q2W 11/11/20 11/21/22 1,000 mcg/mL injection solution estradiol 0.01% (0.1 mg/gram) 1 applic vaginal DAILY 11/11/20 11/21/22 vaginal cream (Estrace) levonorgestrel 21 mcg/24 hours (8 See Rx Instructions .Route .COMPLEX 11/11/20 11/21/22 yrs) 52 mg intrauterine device (Mirena) levothyroxine 50 mcg tablet 50 mcg PO DAILY 11/11/20 11/21/22 potassium chloride 20 mEq 20 meq PO DAILY 11/11/20 11/21/22 tablet,extended release tacrolimus 0.1 % topical ointment 1 applic topical PRN PRN 11/11/20 11/21/22 triamcinolone acetonide 0.1 % 1 applic topical BID 11/11/20 11/21/22 topical cream zaleplon 10 mg capsule 10 mg PO PRN PRN 11/11/20 11/21/22 estradiol 0.025 mg/24 hr weekly 1 patch topical QWEEK 11/23/20 11/21/22 transdermal patch (Climara) valacyclovir 500 mg tablet 1,000 mg PO BID PRN 03/29/21 11/21/22 betamethasone dipropionate 0.05 % 1 applic topical BID PRN 06/14/22 11/21/22 topical ointment calcipotriene-betamethasone 0.005 1 applic topical DAILY PRN 06/14/22 11/21/22 %-0.064 % topical suspension esomeprazole magnesium 40 mg 40 mg PO DAILY 06/14/22 11/21/22 capsule,delayed release (Nexium) fluocinonide 0.05 % topical 1 applic topical BID PRN 06/14/22 11/21/22 solution magnesium 200 mg tablet 400 mg PO DAILY 06/14/22 11/21/22 ustekinumab 90 mg/mL subcutaneous 45 mg subcut Q8W 06/14/22 11/21/22 syringe ([employer]) rimegepant 75 mg disintegrating 75 mg PO ONCE PRN headache #15 tabs 06/21/22 11/21/22 tablet (Nurtec ODT) topiramate 50 mg tablet See Rx Instructions .Route 11/07/22 11/21/22 .COMPLEX #90 tabs cyclobenzaprine 10 mg tablet 30 mg (3 x 10 mg) PO HS #270 01/04/23 tab-caps benzonatate 100 mg capsule 100 mg PO Q4H PRN #14 caps 03/02/23 dextromethorphan HBr 15 mg/5 mL 15 mg (5 mL) PO Q4H PRN #118 mL 03/02/23 oral syrup Previous Rx's Medication Instructions Recorded rimegepant 75 mg disintegrating 75 mg PO ONCE PRN headache #15 tabs 06/21/22 tablet (Nurtec ODT) topiramate 50 mg tablet See Rx Instructions .Route 11/07/22 .COMPLEX #90 tabs cyclobenzaprine 10 mg tablet 30 mg (3 x 10 mg) PO HS #270 01/04/23 tab-caps benzonatate 100 mg capsule 100 mg PO Q4H PRN #14 caps 03/02/23 dextromethorphan HBr 15 mg/5 mL 15 mg (5 mL) PO Q4H PRN #118 mL 03/02/23 oral syrup Allergies Allergy/AdvReac Type Severity Reaction Status Date / Time NSAIDS (Non-Steroidal Allergy Verified 03/02/23 15:21 Anti-Inflamma baclofen AdvReac Intermediate Headache Verified 03/02/23 15:21 ibuprofen AdvReac Intermediate AVOID R/T Verified 03/02/23 15:21 CROHNS PFSH All Active Problems (Updated 03/02/23 @ 21:00 by EASTON Lowe) Hypomagnesemia (Acute) Acute hypokalemia (Acute) Long QT interval (Acute) Influenza A (Acute) Acute dehydration (Acute) Azotemia (Acute) No-show for appointment (Acute) Right rotator cuff tear (Acute) Tension-type headache (Acute 12/31/12) Migraine (Acute 12/31/12) 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) Aortic stenosis (Chronic) Migraine headache without aura (Acute) Migraine headache with aura (Acute) Diarrhea (Acute) Dehydration (Acute) Arthritis (Acute) Medical History Aortic stenosis, moderate Bicuspid aortic valve Chest pain Chronic insomnia Chronic kidney disease Crohn's disease GERD (gastroesophageal reflux disease) Herpes labialis Hypothyroidism Vaginitis Vitamin B12 deficiency Social History Smoking/Tobacco Use Status: Former Tobacco Use Smoking risk assessment performed?: Yes Alcohol Intake: never Drug use: Never Substance use type: does not use Household members: spouse 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, 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 Course Vital Signs Vital signs: Vital Signs Temperature 37.2 C 03/02/23 15:18 Pulse 105 H 03/02/23 15:18 Respiratory Rate 20 03/02/23 15:18 Blood Pressure 125/93 H 03/02/23 15:18 Pulse Oximetry 100 03/02/23 15:18 Temperature 37.2 C 03/02/23 15:18 Temperature Source Temporal Artery Scan 03/02/23 15:18 Pulse 105 H 03/02/23 15:18 Respiratory Rate 20 03/02/23 15:18 Respiratory Effort Non-Labored 03/02/23 15:59 Respiratory Depth Normal 03/02/23 15:59 Blood Pressure 125/93 H 03/02/23 15:18 Pulse Oximetry 100 03/02/23 15:18 Oxygen Delivery Method Room Air 03/02/23 15:18 Oxygen Flow Rate 0 03/02/23 15:18 Lab/Test Results Lab/Test Results: Laboratory Tests Range/Units 03/02/23 03/02/23 03/02/23 16:30 17:20 18:38 WBC (4.4-10.8) 10^3/uL 7.80 RBC (3.93-5.22) 10^6/uL 4.15 Hgb (11.2-15.7) g/dL 13.0 Hct (36.0-46.0) % 39.4 MCV (80-95) fL 95 MCH (27.0-33.0) pg 31.3 MCHC (32.0-36.0) % 33.0 RDW (11.7-14.6) % 14.4 Plt Count (130-400) 10^3/uL 159 MPV (8.0-11.0) fL 9.6 Immature Gran % 0.4 Neutrophils % 77.9 Lymphocytes % 13.1 Monocytes % 6.4 Eosinophils % 1.9 Basophils % 0.3 Nucleated RBC % (0.0-0.3) % 0.0 Absolute Neutrophils (1.2-6.7) 10^3/uL 6.08 Absolute Lymphocytes (1.2-3.4) 10^3/uL 1.02 L Absolute Monocytes (0.1-0.8) 10^3/uL 0.50 Absolute Eosinophils (0.0-0.7) 10^3/uL 0.15 Absolute Basophils (0.0-0.2) 10^3/uL 0.02 Sodium (136-145) mmol/L 135 L Potassium (3.5-5.1) mmol/L 3.9 Chloride (98-107) mmol/L 103 Carbon Dioxide (21.0-32.0) mmol/L 16.5 L Anion Gap (3-11) mmol/L 15.5 H BUN (7-18) mg/dL 22 H Creatinine (0.55-1.02) mg/dL 1.2 H Est GFR (CKD-EPI 2021) (mL/min/1.73m2) 51.82 Glucose (74-106) mg/dL 82 Calcium (8.5-10.1) mg/dL 9.0 Magnesium (1.8-2.4) mg/dL 1.7 L Total Bilirubin (0.2-1.0) mg/dL 0.6 AST (15-37) U/L 471 H ALT (14-59) U/L 231 H Alkaline Phosphatase (46-116) U/L 118 H Creatine Kinase (26-192) U/L 160 Troponin I (< or =60) ng/L < 50 Total Protein (6.4-8.2) g/dL 8.5 H Albumin (3.4-5.0) g/dL 3.8 Lipase (16-77) U/L 49 Cancelled Urine Color (Yellow) Yellow Urine Clarity (Clear) Sl Cloudy Urine pH (5-8) 5.5 Ur Specific [place] (1.005-1.025) 1.020 Urine Protein (Negative) mg/dL 30 H Urine Ketones (Negative) mg/dL Trace H Urine Blood (Negative) Negative Urine Nitrite (Negative) Negative Urine Bilirubin (Negative) Negative Urine Urobilinogen (Up to 0.2) mg/dL 0.2 Ur Leukocyte Esterase (Negative) Negative Urine RBC (0-2) HPF 0-2 Urine WBC (0-5) HPF 3-5 Ur Epithelial Cells (Negative) HPF Many Urine Crystals (Negative) HPF Negative Urine Bacteria (Negative) HPF Few Urine Casts (Negative) LPF Negative Urine Mucus (Negative) Trace Ur Culture Indicated? No/Sq. Contamination Urine Glucose (Negative) mg/dL Negative Range/Units 03/02/23 03/02/23 18:41 20:08 WBC (4.4-10.8) 10^3/uL RBC (3.93-5.22) 10^6/uL Hgb (11.2-15.7) g/dL Hct (36.0-46.0) % MCV (80-95) fL MCH (27.0-33.0) pg MCHC (32.0-36.0) % RDW (11.7-14.6) % Plt Count (130-400) 10^3/uL MPV (8.0-11.0) fL Immature Gran % Neutrophils % Lymphocytes % Monocytes % Eosinophils % Basophils % Nucleated RBC % (0.0-0.3) % Absolute Neutrophils (1.2-6.7) 10^3/uL Absolute Lymphocytes (1.2-3.4) 10^3/uL Absolute Monocytes (0.1-0.8) 10^3/uL Absolute Eosinophils (0.0-0.7) 10^3/uL Absolute Basophils (0.0-0.2) 10^3/uL Sodium (136-145) mmol/L 134 L Potassium (3.5-5.1) mmol/L 3.1 L Chloride (98-107) mmol/L 105 Carbon Dioxide (21.0-32.0) mmol/L 20.2 L Anion Gap (3-11) mmol/L 8.8 BUN (7-18) mg/dL 18 Creatinine (0.55-1.02) mg/dL 1.3 H Est GFR (CKD-EPI 2020) (mL/min/1.73m2) 47.08 Glucose (74-106) mg/dL 194 H Calcium (8.5-10.1) mg/dL 7.9 L Magnesium (1.8-2.4) mg/dL Total Bilirubin (0.2-1.0) mg/dL 0.4 AST (15-37) U/L 456 H ALT (14-59) U/L 214 H Alkaline Phosphatase (46-116) U/L 88 Creatine Kinase (26-192) U/L Troponin I (< or =60) ng/L Cancelled Total Protein (6.4-8.2) g/dL 6.4 Albumin (3.4-5.0) g/dL 2.7 L Lipase (16-77) U/L Urine Color (Yellow) Urine Clarity (Clear) Urine pH (5-8) Ur Specific [place] (1.005-1.025) Urine Protein (Negative) mg/dL Urine Ketones (Negative) mg/dL Urine Blood (Negative) Urine Nitrite (Negative) Urine Bilirubin (Negative) Urine Urobilinogen (Up to 0.2) mg/dL Ur Leukocyte Esterase (Negative) Urine RBC (0-2) HPF Urine WBC (0-5) HPF Ur Epithelial Cells (Negative) HPF Urine Crystals (Negative) HPF Urine Bacteria (Negative) HPF Urine Casts (Negative) LPF Urine Mucus (Negative) Ur Culture Indicated? Urine Glucose (Negative) mg/dL Medical Decision Making 62-year-old complex female with history of Crohn's colitis and rheumatoid arthritis with immunosuppression, recent diagnosis of influenza presenting with weakness, prolonged QTc on EKG, on hydroxychloroquine, no significant electrolyte abnormalities likely contributing, will discontinue hydroxychloroquine No dysrhythmia in the emergency department Hypokalemia on recheck 3.1, supplemented with 40 mEq of potassium, hypomagnesemia 1.7, supplemented with 800 mg of magnesium Elevated LFTs, likely from influenza but patient was recently started on Pentasa, will discontinue temporarily as this can cause acute hepatitis Patient markedly dehydrated on chemistry, repeat performed, improved and patient is able to drink fluids in the emergency department, encourage persistent hydration Will need recheck on Sunday, of EKG and electrolytes at the discretion of patient's provider She is encouraged to send her referral coordinator a message and let them know that she has discontinued these 2 medications temporarily She is feeling improvement, she is also given a prescription for an albuterol inhaler for her cough, she will discontinue the Tamiflu She is ambulatory with steady gait repeat vitals of pulse of 90, blood pressure 120/90, temp of 37.9, and oxygen 100% on room air, chest x-ray per radiology interpretation my review does not show evidence of acute pneumonia Alk phos is improved at hydration, AST and ALT mildly improved, CPK within normal limits Return precautions reviewed and patient expressed understanding Quality:SDOH Health Related Social Needs: No Data to Display Discharge Plan Disposition Patient Disposition: Home Discharge Details Clinical Impression: Azotemia, Acute dehydration, Influenza A, Long QT interval, Acute hypokalemia, Hypomagnesemia Primary Care Provider: Lindsey Clay ED Provider: Jennifer Bloom Home Meds and New Rx's Prescriptions: New dextromethorphan HBr 15 mg/5 mL syrup 15 mg PO Q4H PRNQty: 118 0RF benzonatate 100 mg capsule 100 mg PO Q4H PRNQty: 14 0RF Continued famotidine 20 mg tablet 20 mg PO HS Zyrtec 10 mg capsule 10 mg PO DAILY PRN Nurtec ODT 75 mg tablet,disintegrating 75 mg PO ONCE PRN (Reason: headache) Qty: 15 3RF Rx Instructions: as a single dose; not to exceed 1 dose per 24 hrs OR 15 doses per 30 days betamethasone dipropionate 0.05 % ointment 1 applic topical BID PRN calcipotriene-betamethasone 0.005-0.064 % suspension 1 applic topical DAILY PRN esomeprazole magnesium [Nexium] 40 mg capsule,delayed release(DR/EC) 40 mg PO DAILY fluocinonide 0.05 % solution 1 applic topical BID PRN magnesium 200 mg tablet 400 mg PO DAILY Stelara 90 mg/mL syringe 45 mg subcut Q8W topiramate 50 mg tablet See Rx Instructions .ROUTE .COMPLEX Qty: 90 3RF Dose Instruction: TAKE ONE TABLET BY MOUTH AT BEDTIME Rx Instructions: TAKE ONE TABLET BY MOUTH AT BEDTIME cyclobenzaprine 10 mg tablet 30 mg PO HS Qty: 270 3RF Rx Instructions: Take 3 tabs at bedtime Mirena 20 mcg/24 hours (6 yrs) 52 mg Intrauterine Device See Rx Instructions .ROUTE .COMPLEX Rx Instructions: 1 insert intrauterinely triamcinolone acetonide 0.1 % Cream 1 applic TOPICAL BID nzivzmz-meoxghmik-rtor Tablet 1 tab PO DAILY levothyroxine 50 mcg Tablet 50 mcg PO DAILY cyanocobalamin (vitamin B-12) 1,000 mcg/mL Solution 1,100 mcg IM Q2W tacrolimus 0.1 % Ointment 1 applic topical PRN PRN zaleplon 10 mg Capsule 10 mg PO PRN PRN estradiol [Estrace] 0.01 % (0.1 mg/gram) Cream 1 applic VAGINAL DAILY clindamycin phosphate 1 % Solution 1 applic topical BID cholecalciferol (vitamin D3) 25 mcg (1,000 unit) Tablet 25 mcg PO DAILY potassium chloride 20 mEq Tablet Extended Release 20 meq PO DAILY estradiol [Climara] 0.025 mg/24 hr patch weekly 1 patch topical QWEEK Rx Instructions: 0.5mg patch one week, 0.375 following week. valacyclovir 500 mg tablet 1,000 mg PO BID PRN Discontinued hydroxychloroquine 200 mg tablet 300 mg PO DAILY Discharge Instructions Instructions: Dehydration (ED), Hypokalemia (ED), H1N1 Influenza (ED), Hypomagnesemia (ED) Additional Instructions: Take your magnesium daily, 400 mg Take the potassium 40 mEq daily for the next 3 days and then resume your 20 mill equivalents Stop taking your Pentasa and your hydroxychloroquine, please call your doctor/referral coordinator and let them know that you have stopped these medications your qtc is widened and your liver enzymes are elevated, this can cause this presentation I am giving you prescription for Robitussin AC, this can be addictive, you can use it for cough as needed Stop taking your Tamiflu Have at least eight 8 ounce glasses of fluid daily Please be reevaluated by your doctor on Sunday, call the office for follow-up of also placed on the follow-up list Please return immediately should you have new or worsening complaints Referrals: Lindsey Clay MD [Primary Care Provider] - 3 days
== END 2023-03-02 21:07 | disposition home or self-care (01) ==
PROVIDERS: Emergency Medicine Emergency Medical Services; Emergency Provider Physician Assistant; PCP Family Medicine
DX: J10.1 Influenza due to other identified influenza virus with other respiratory manifestations (principal); E86.0 Dehydration; R79.89 Other specified abnormal findings of blood chemistry; M06.9 Rheumatoid arthritis, unspecified; Z79.60 Long term (current) use of unspecified immunomodulators and immunosuppressants; Z87.891 Personal history of nicotine dependence
CPT/HCPCS: 80053; 82550; 83690; 93005; 96361; 96374; 99284; 71046; 81003; 81015; 83735; 84484; 85025; 93010; J2405

== ENCOUNTER 2023-03-04 15:16 | Emergency (ER) | payer MEDICAID, SELFPAY ==
[2012-05-13 09:14] VITALS: BP 98/60; BP 98/70; PULSE 76
[2023-03-04] VITALS (33 sets, daily range): BP systolic 88–120; BP diastolic 57–88; PULSE 72–111; RESP 14–20; TEMP 36.7–37; O2SAT 100
--- NOTE | 2023-03-04 16:45 | RT.EKG_ITS ---
APPROVED REPORT Exam: Resting ECG Reason for Exam: prolonged QT Patient Location: E HR:84 bpm ECG Measurements Heart Rate 84 AXIS IA 126 P 48 QRSd 71 QRS 32 QT 357 T 58 QTc 422 Conclusion Sinus rhythm...normal P axis, V-rate 60- 99
[2023-03-04 17:08] LABS: Abs Immature Grans 0.05 10^3/uL (0.0-0.06); Absolute Basophil Count 0.02 10^3/uL (0.0-0.2); Absolute Eosinophil Count 0.16 10^3/uL (0.0-0.7); Absolute Lymphocyte Count 1.05 10^3/uL (1.2-3.4); Absolute Monocyte Count 0.53 10^3/uL (0.1-0.8); Absolute Neutrophil Count 7.04 10^3/uL (1.2-6.7); Basophils % 0.2; Eosinophils % 1.8; HCT 35.9 % (36.0-46.0); HGB 11.5 g/dL (11.2-15.7); Immature Grans % 0.6; Lymphocytes % 11.9; MCH 30.5 pg (27.0-33.0); MCV 95 fL (80-95); MPV 9.4 fL (8.0-11.0); Neutrophils % 79.5; Platelet Count 187 10^3/uL (130-400); RBC 3.77 10^6/uL (3.93-5.22); RDW 14.6 % (11.7-14.6); WBC 8.85 10^3/uL (4.4-10.8)
[2023-03-04] MEDS: Normal Saline 1,000 ML 1000 ML IV (17:21)
[2023-03-04 17:26] LABS: ALT 643 U/L (14-59); AST 535 U/L (15-37); Alkaline Phosphatase 108 U/L (46-116); Anion Gap 11.7 mmol/L (3-11); BUN 14 mg/dL (7-18); Bilirubin, Total 0.4 mg/dL (0.2-1.0); CO2 21.3 mmol/L (21.0-32.0); CREATININE 1.1 mg/dL (0.55-1.02); Calcium 8.8 mg/dL (8.5-10.1); Chloride 106 mmol/L (98-107); Estimated GFR 57.52 (mL/min/1.73m2); Glucose 123 mg/dL (74-106); Magnesium 1.8 mg/dL (1.8-2.4); Potassium 3.6 mmol/L (3.5-5.1); Sodium 139 mmol/L (136-145); Total Protein 7.1 g/dL (6.4-8.2)
[2023-03-04 19:22] LABS: Acetaminophen 25 ug/mL (10-30)
[2023-03-04] MEDS: Normal Saline 500 ML IV (20:03)
--- NOTE | 2023-03-04 20:09 | ED.GENADUL_ITS ---
HPI General Stated Complaint: RespSymp Mode of arrival: ambulatory. SHRUTI: 3 Date/Time Provider Initiated Documentation: 03/04/23 15:16. Limitations to Documentation: no limitations. Information obtained by: patient and RN notes reviewed. History of Present Illness Continued cough, dehydration, sore throat moderate and similar to prior episodes week(s) (1) constant No relieving factors improve symptom(s), No exacerbating factors reported other (Acetaminophen) Related Data Home Medications Medication Instructions Recorded Confirmed famotidine 20 mg tablet 20 mg PO HS 03/30/20 03/04/23 cetirizine 10 mg capsule (Zyrtec) 10 mg PO DAILY PRN 08/30/20 03/04/23 [id number]-[id number] tablet 1 tab PO DAILY 11/11/20 03/04/23 cholecalciferol (vitamin D3) 25 25 mcg PO DAILY 11/11/20 03/04/23 mcg (1,000 unit) tablet clindamycin phosphate 1 % topical 1 applic topical BID 11/11/20 03/04/23 solution cyanocobalamin (vitamin B-12) 1,100 mcg IM Q2W 11/11/20 03/04/23 1,000 mcg/mL injection solution estradiol 0.01% (0.1 mg/gram) 1 applic vaginal DAILY 11/11/20 03/04/23 vaginal cream (Estrace) levonorgestrel 21 mcg/24 hours (8 See Rx Instructions .Route .COMPLEX 11/11/20 03/04/23 yrs) 52 mg intrauterine device (Mirena) levothyroxine 50 mcg tablet 50 mcg PO DAILY 11/11/20 03/04/23 potassium chloride 20 mEq 20 meq PO DAILY 11/11/20 03/04/23 tablet,extended release tacrolimus 0.1 % topical ointment 1 applic topical PRN PRN 11/11/20 03/04/23 triamcinolone acetonide 0.1 % 1 applic topical BID 11/11/20 03/04/23 topical cream estradiol 0.025 mg/24 hr weekly 1 patch topical QWEEK 11/23/20 03/04/23 transdermal patch (Climara) valacyclovir 500 mg tablet 1,000 mg PO BID PRN 03/29/21 03/04/23 betamethasone dipropionate 0.05 % 1 applic topical BID PRN 06/14/22 03/04/23 topical ointment calcipotriene-betamethasone 0.005 1 applic topical DAILY PRN 06/14/22 03/04/23 %-0.064 % topical suspension esomeprazole magnesium 40 mg 40 mg PO DAILY 06/14/22 03/04/23 capsule,delayed release (Nexium) fluocinonide 0.05 % topical 1 applic topical BID PRN 06/14/22 03/04/23 solution magnesium 200 mg tablet 400 mg PO DAILY 06/14/22 03/04/23 ustekinumab 90 mg/mL subcutaneous 45 mg subcut Q8W 06/14/22 03/04/23 syringe (Stelara) rimegepant 75 mg disintegrating 75 mg PO ONCE PRN headache #15 tabs 06/21/22 03/04/23 tablet (Nurtec ODT) topiramate 50 mg tablet See Rx Instructions .Route 11/07/22 03/04/23 .COMPLEX #90 tabs cyclobenzaprine 10 mg tablet 30 mg (3 x 10 mg) PO HS #270 01/04/23 03/04/23 tab-caps benzonatate 100 mg capsule 100 mg PO Q4H PRN #14 caps 03/02/23 03/04/23 prednisone 20 mg tablet 40 mg (2 x 20 mg) PO DAILY #8 tabs 03/04/23 Previous Rx's Medication Instructions Recorded rimegepant 75 mg disintegrating 75 mg PO ONCE PRN headache #15 tabs 06/21/22 tablet (Nurtec ODT) topiramate 50 mg tablet See Rx Instructions .Route 11/07/22 .COMPLEX #90 tabs cyclobenzaprine 10 mg tablet 30 mg (3 x 10 mg) PO HS #270 01/04/23 tab-caps benzonatate 100 mg capsule 100 mg PO Q4H PRN #14 caps 03/02/23 prednisone 20 mg tablet 40 mg (2 x 20 mg) PO DAILY #8 tabs 03/04/23 Allergies Allergy/AdvReac Type Severity Reaction Status Date / Time NSAIDS (Non-Steroidal Allergy Verified 03/04/23 15:24 Anti-Inflamma baclofen AdvReac Intermediate Headache Verified 03/04/23 15:24 ibuprofen AdvReac Intermediate AVOID R/T Verified 03/04/23 15:24 CROHNS Review of Systems Constitutional Constitutional: Denies chills, Denies fever(s), Reports headache(s), Reports lethargy, Reports malaise, Denies night sweats and Reports poor appetite ENT Ears, Nose, Mouth, and Throat: Reports as per HPI, Denies otalgia, Reports headache(s), Reports hoarseness, Reports nasal congestion and Reports sore throat Cardiovascular Cardiovascular: Denies chest pain and Denies dyspnea Respiratory Respiratory: Reports cough, Denies excessive phlegm production, Reports pain with cough and Denies dyspnea Gastrointestinal Gastrointestinal: Denies diarrhea, Denies nausea and Denies vomiting Integumentary/Breasts Skin/Breast: Denies rash Neurologic Neurologic: Reports headache(s) PFSH All Active Problems (Updated 03/04/23 @ 21:19 by Valdo Pacheco NP) Elevated liver enzymes (Acute) Hypomagnesemia (Acute) Acute hypokalemia (Acute) Long QT interval (Acute) Influenza A (Acute) Acute dehydration (Acute) Azotemia (Acute) No-show for appointment (Acute) Right rotator cuff tear (Acute) Tension-type headache (Acute 12/31/12) Migraine (Acute 12/31/12) 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) Aortic stenosis (Chronic) Migraine headache without aura (Acute) Migraine headache with aura (Acute) Diarrhea (Acute) Dehydration (Acute) Arthritis (Acute) Medical History Aortic stenosis, moderate Bicuspid aortic valve Chest pain Chronic insomnia Chronic kidney disease Crohn's disease GERD (gastroesophageal reflux disease) Herpes labialis Hypothyroidism Vaginitis Vitamin B12 deficiency Social History Smoking/Tobacco Use Status: Former Tobacco Use Smoking risk assessment performed?: Yes Alcohol Intake: never Drug use: Never Substance use type: does not use Household members: spouse Housing: house 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, 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 Exam Const General: cooperative, comfortable and no acute distress Orientation: alert and awake [facility] Head: normal to inspection, normocephalic and atraumatic Ears: hearing grossly normal bilaterally and TM's normal bilaterally General nose exam: external nose normal Face and sinus: no erythema Mouth: oral mucosae normal, no drooling, no muffled voice and no trismus Throat: posterior oropharynx normal Neck Neck: normal visual inspection, full ROM, no lymphadenopathy, no meningeal signs, trachea midline and supple Resp Effort & Inspection: normal respiratory effort, able to speak in complete sentences and cough Quality of cough: dry Auscultation: clear to auscultation bilaterally Cardio Rate: regular rate Rhythm: regular rhythm Heart Sounds: S1 normal, S2 normal, normal S1 and S2, no click, no gallops, no murmurs and no rubs Skin General skin exam: no rashes or lesions noted and dry skin (warm) Neuro General: patient alert, patient awake, patient oriented x3, gait normal and moves all extremities Cognition: normal cognition Speech: speech normal Course Vital Signs Vital signs: Vital Signs Temperature 37.0 C 03/04/23 15:19 Pulse 111 H 03/04/23 15:19 Respiratory Rate 20 03/04/23 15:19 Blood Pressure 103/64 03/04/23 15:19 Pulse Oximetry 100 03/04/23 15:19 Temperature 36.7 C 03/04/23 16:22 Temperature Source Tympanic 03/04/23 15:19 Pulse 92 H 03/04/23 20:01 Respiratory Rate 14 03/04/23 16:22 Respiratory Effort Normal, Non-Labored 03/04/23 16:22 Blood Pressure 95/63 L 03/04/23 20:01 Blood Pressure Mean 74 03/04/23 20:01 Blood Pressure Position Supine 03/04/23 16:22 Pulse Oximetry 100 03/04/23 19:10 Oxygen Delivery Method Room Air 03/04/23 16:22 Lab/Test Results Lab/Test Results: Laboratory Tests Range/Units 03/04/23 03/04/23 03/04/23 17:02 17:08 18:48 WBC (4.4-10.8) 10^3/uL 8.85 RBC (3.93-5.22) 10^6/uL 3.77 L Hgb (11.2-15.7) g/dL 11.5 Hct (36.0-46.0) % 35.9 L MCV (80-95) fL 95 MCH (27.0-33.0) pg 30.5 MCHC (32.0-36.0) % 32.0 RDW (11.7-14.6) % 14.6 Plt Count (130-400) 10^3/uL 187 MPV (8.0-11.0) fL 9.4 Immature Gran % 0.6 Neutrophils % 79.5 Lymphocytes % 11.9 Monocytes % 6.0 Eosinophils % 1.8 Basophils % 0.2 Nucleated RBC % (0.0-0.3) % 0.0 Absolute Neutrophils (1.2-6.7) 10^3/uL 7.04 H Absolute Lymphocytes (1.2-3.4) 10^3/uL 1.05 L Absolute Monocytes (0.1-0.8) 10^3/uL 0.53 Absolute Eosinophils (0.0-0.7) 10^3/uL 0.16 Absolute Basophils (0.0-0.2) 10^3/uL 0.02 Sodium (136-145) mmol/L 139 Potassium (3.5-5.1) mmol/L 3.6 Chloride (98-107) mmol/L 106 Carbon Dioxide (21.0-32.0) mmol/L 21.3 Anion Gap (3-11) mmol/L 11.7 H BUN (7-18) mg/dL 14 Creatinine (0.55-1.02) mg/dL 1.1 H Est GFR (CKD-EPI 2020) (mL/min/1.73m2) 57.52 Glucose (74-106) mg/dL 123 H Calcium (8.5-10.1) mg/dL 8.8 Magnesium (1.8-2.4) mg/dL 1.8 Total Bilirubin (0.2-1.0) mg/dL 0.4 AST (15-37) U/L 535 H ALT (14-59) U/L 643 H Alkaline Phosphatase (46-116) U/L 108 Total Protein (6.4-8.2) g/dL 7.1 Albumin (3.4-5.0) g/dL 3.0 L Acetaminophen (10-30) ug/mL 25 Medical Decision Making Patient presenting to the emergency department for chief complaint of cold symptoms. Patient reports symptoms have been going on for the past 7 days. reports cough, fatigue, nasal congestion, hoarse voice and sore throat. Physical exam shows mild posterior pharynx, mild anterior cervical lymphadenopathy, otherwise clear lung sounds, dry nonproductive cough, mild tachycardia and otherwise unremarkable exam. Patient has no signs of meningitis, peritonsillar abscess, retropharyngeal abscess, Tyson's angina, or life-threatening Airway infection. Patient was seen earlier in the week and diagnosed with influenza. Patient was then seen 2 days ago in the emergency department did have some abnormal labs so we will plan on rechecking labs and given patient fluids as I feel this may help her feel better. With further discussion she states that she does not feel that symptoms are getting any worse just she is concerned that she is not better yet. Reviewed patient's labs and CBC is overall nonworrisome with no significant change of concern, CMP does show slightly elevated anion gap and creatinine of 1.1. There is significant elevation of AST and ALT which is concerning. Patient reassessed and states no abdominal pain but with further discussion does report significant acetaminophen use and taking at least 4 tablets at a time. She was also started on a new medication for her Crohn's that she may feel is also contributing to her symptoms. Patient was informed that she would need to stop both of these medications as they were affecting her liver. Hepatitis panel was sent and acetaminophen level checked which was in normal range at this time. Patient concerned about acetaminophen discontinuation at least until labs are rechecked as she uses this for her significant arthritic pain. Patient given limited supply of narcotics given that she cannot take NSAIDs due to her medical history. To help with influenza/viral type symptoms patient given short course of steroids to see if this would overall help otherwise patient has clear lung sounds and so I do not feel needs any antibiotics. Patient encouraged to stay well-hydrated and pnin-pss-fparlaf conservative management discussed along with follow-up and return precautions. After discussion of diagnosis and plan of care patient has no further needs, questions, or concerns and states clear understanding to return to the emergency department for any worsening symptoms. This documentation was generated using [employer] system, please disregard any oddities of phrase or misspellings. Lab Data Lab results reviewed: Yes I reviewed the patient's lab results. Quality:SDOH Health Related Social Needs: No Data to Display Discharge Plan Disposition Patient Disposition: Home Discharge Details Clinical Impression: Influenza A, Dehydration, Elevated liver enzymes Primary Care Provider: Lindsey Clay ED Provider: Valdo Pacheco Home Meds and New Rx's Prescriptions: New prednisone 20 mg tablet 40 mg PO DAILY Qty: 8 0RF Continued famotidine 20 mg tablet 20 mg PO HS Zyrtec 10 mg capsule 10 mg PO DAILY PRN Nurtec ODT 75 mg tablet,disintegrating 75 mg PO ONCE PRN (Reason: headache) Qty: 15 3RF Rx Instructions: as a single dose; not to exceed 1 dose per 24 hrs OR 15 doses per 30 days betamethasone dipropionate 0.05 % ointment 1 applic topical BID PRN calcipotriene-betamethasone 0.005-0.064 % suspension 1 applic topical DAILY PRN esomeprazole magnesium [Nexium] 40 mg capsule,delayed release(DR/EC) 40 mg PO DAILY fluocinonide 0.05 % solution 1 applic topical BID PRN magnesium 200 mg tablet 400 mg PO DAILY Stelara 90 mg/mL syringe 45 mg subcut Q8W topiramate 50 mg tablet See Rx Instructions .ROUTE .COMPLEX Qty: 90 3RF Dose Instruction: TAKE ONE TABLET BY MOUTH AT BEDTIME Rx Instructions: TAKE ONE TABLET BY MOUTH AT BEDTIME cyclobenzaprine 10 mg tablet 30 mg PO HS Qty: 270 3RF Rx Instructions: Take 3 tabs at bedtime benzonatate 100 mg capsule 100 mg PO Q4H PRNQty: 14 0RF Mirena 20 mcg/24 hours (6 yrs) 52 mg Intrauterine Device See Rx Instructions .ROUTE .COMPLEX Rx Instructions: 1 insert intrauterinely triamcinolone acetonide 0.1 % Cream 1 applic TOPICAL BID [id number]-frbgujnzu-brqu Tablet 1 tab PO DAILY levothyroxine 50 mcg Tablet 50 mcg PO DAILY cyanocobalamin (vitamin B-12) 1,000 mcg/mL Solution 1,100 mcg IM Q2W tacrolimus 0.1 % Ointment 1 applic topical PRN PRN estradiol [Estrace] 0.01 % (0.1 mg/gram) Cream 1 applic VAGINAL DAILY clindamycin phosphate 1 % Solution 1 applic topical BID cholecalciferol (vitamin D3) 25 mcg (1,000 unit) Tablet 25 mcg PO DAILY potassium chloride 20 mEq Tablet Extended Release 20 meq PO DAILY estradiol [Climara] 0.025 mg/24 hr patch weekly 1 patch topical QWEEK Rx Instructions: 0.5mg patch one week, 0.375 following week. valacyclovir 500 mg tablet 1,000 mg PO BID PRN Discontinued dextromethorphan HBr 15 mg/5 mL syrup 15 mg PO Q4H PRNQty: 118 0RF Discharge Instructions Instructions: Dehydration (ED), Influenza (ED) Additional Instructions: Your liver enzymes are elevated pretty significantly and I do feel this is secondary to the acetaminophen you have been taking but also could have some relation to the new Pentasa. Please hold this medication along with any ejuj-hsm-gyzdnjv acetaminophen until your liver enzymes can be rechecked by your primary care provider next week. Continue to take Tessalon Perles for your cough but you may also take dauz-ele-[id number] Mucinex DM as directed on packaging. Stay well-hydrated and get plenty of rest during illness. Please follow-up with your primary care provider for reassessment of your influenza/viral illness along with your liver enzymes. Referrals: Lindsey Clay MD [Primary Care Provider] - 3 days (For reassessment of symptoms)
[2023-03-05 20:53] LABS: Hepatitis A Antibody IgM Negative (Negative); Hepatitis B Core Antibody Negative (Negative); Hepatitis B surface Ag Negative (Negative); Hepatitis C Ab w Rflx HCV PCR Negative (Negative)
== END 2023-03-04 21:46 | disposition home or self-care (01) ==
PROVIDERS: Emergency Provider Nurse Practitioner Family; PCP Family Medicine
DX: R05.1 Acute cough (principal); E86.0 Dehydration; R07.0 Pain in throat; J10.1 Influenza due to other identified influenza virus with other respiratory manifestations; R74.8 Abnormal levels of other serum enzymes
CPT/HCPCS: 80053; 86704; 86709; 86803; 87340; 93005; 96360; 96361; 99284; 80329; 83735; 85025; 93010; 99283

== ENCOUNTER 2023-03-12 04:46 | Outpatient (CLI) | payer MEDICAID, SELFPAY ==
[2012-05-13 09:14] VITALS: BP 98/60; BP 98/70; PULSE 76
[2023-03-12 16:44] LABS: Abs Immature Grans 0.13 10^3/uL (0.0-0.06); Absolute Basophil Count 0.04 10^3/uL (0.0-0.2); Absolute Eosinophil Count 0.05 10^3/uL (0.0-0.7); Absolute Lymphocyte Count 2.77 10^3/uL (1.2-3.4); Absolute Monocyte Count 1.32 10^3/uL (0.1-0.8); Absolute Neutrophil Count 13.57 10^3/uL (1.2-6.7); Basophils % 0.2; Eosinophils % 0.3; HCT 38.5 % (36.0-46.0); HGB 12.1 g/dL (11.2-15.7); Immature Grans % 0.7; Lymphocytes % 15.5; MCH 30.8 pg (27.0-33.0); MCHC 31.4 % (32.0-36.0); MCV 98 fL (80-95); MPV 9.6 fL (8.0-11.0); Monocytes % 7.4; Neutrophils % 75.9; Platelet Count 307 10^3/uL (130-400); RBC 3.93 10^6/uL (3.93-5.22); RDW 14.2 % (11.7-14.6); RDW-SD 51.7 fL; WBC 17.88 10^3/uL (4.4-10.8)
[2023-03-12 18:32] LABS: ALT 86 U/L (14-59); AST 29 U/L (15-37); Albumin 3.6 g/dL (3.4-5.0); Alkaline Phosphatase 91 U/L (46-116); Anion Gap 10.9 mmol/L (3-11); BUN 23 mg/dL (7-18); Bilirubin, Total 0.5 mg/dL (0.2-1.0); CO2 25.1 mmol/L (21.0-32.0); CREATININE 1.3 mg/dL (0.55-1.02); Calcium 9.7 mg/dL (8.5-10.1); Chloride 101 mmol/L (98-107); Estimated GFR 47.08 (mL/min/1.73m2); Glucose 96 mg/dL (74-106); Potassium 3.8 mmol/L (3.5-5.1); Sodium 137 mmol/L (136-145); Total Protein 7.7 g/dL (6.4-8.2)
== END 2023-03-12 04:47 | disposition home or self-care (01) ==
PROVIDERS: PCP Family Medicine; Visit Provider Internal Medicine Rheumatology
DX: L40.59 Other psoriatic arthropathy (principal); Z79.899 Other long term (current) drug therapy
CPT/HCPCS: 36415; 80053; 85025

== ENCOUNTER 2023-03-15 15:09 | Outpatient (REF) | payer MEDICAID, SELFPAY ==
[2012-05-13 09:14] VITALS: BP 98/60; BP 98/70; PULSE 76
== END 2023-03-15 15:10 | disposition home or self-care (01) ==
LOC: LBN 15:09
PROVIDERS: PCP Family Medicine; Visit Provider Student in an Organized Health Care Education/Training Program
DX: N76.0 Acute vaginitis (principal)
CPT/HCPCS: 87077; 87086; 87186

== ENCOUNTER 2023-03-22 12:52 | Outpatient (REF) | payer MEDICAID, SELFPAY ==
[2012-05-13 09:14] VITALS: BP 98/60; BP 98/70; PULSE 76
== END 2023-03-22 12:53 | disposition home or self-care (01) ==
LOC: NCHCN 12:52
PROVIDERS: PCP Family Medicine; Visit Provider Nurse Practitioner Family
DX: J02.9 Acute pharyngitis, unspecified (principal)
CPT/HCPCS: 87070

== ENCOUNTER 2023-03-28 10:12 | Outpatient (CLI) | payer MEDICAID, SELFPAY ==
[2012-05-13 09:14] VITALS: BP 98/60; BP 98/70; PULSE 76
[2023-03-28 08:52] LABS: Abs Immature Grans 0.02 10^3/uL (0.0-0.06); Absolute Basophil Count 0.06 10^3/uL (0.0-0.2); Absolute Eosinophil Count 0.37 10^3/uL (0.0-0.7); Absolute Lymphocyte Count 1.48 10^3/uL (1.2-3.4); Absolute Monocyte Count 0.46 10^3/uL (0.1-0.8); Absolute Neutrophil Count 5.78 10^3/uL (1.2-6.7); Basophils % 0.7; Eosinophils % 4.5; HCT 36.5 % (36.0-46.0); HGB 11.7 g/dL (11.2-15.7); Immature Grans % 0.2; Lymphocytes % 18.1; MCH 31.4 pg (27.0-33.0); MCHC 32.1 % (32.0-36.0); MCV 98 fL (80-95); MPV 9.3 fL (8.0-11.0); Monocytes % 5.6; Neutrophils % 70.9; Platelet Count 187 10^3/uL (130-400); RBC 3.73 10^6/uL (3.93-5.22); RDW 14.6 % (11.7-14.6); RDW-SD 52.7 fL; WBC 8.17 10^3/uL (4.4-10.8)
[2023-03-28 09:27] LABS: ALT 22 U/L (14-59); AST 21 U/L (15-37); Albumin 3.4 g/dL (3.4-5.0); Alkaline Phosphatase 86 U/L (46-116); Bilirubin, Direct 0.2 mg/dL (0.0-0.2); Bilirubin, Total 0.4 mg/dL (0.2-1.0); C-Reactive Protein 0.84 mg/dL (<or=0.5); Total Protein 7.8 g/dL (6.4-8.2)
== END 2023-03-28 10:13 | disposition home or self-care (01) ==
LOC: LBO 10:12
PROVIDERS: PCP Family Medicine; Referring Provider Internal Medicine Gastroenterology; Visit Provider Internal Medicine Gastroenterology
DX: K52.9 Noninfective gastroenteritis and colitis, unspecified (principal); Z79.899 Other long term (current) drug therapy
CPT/HCPCS: 36415; 80076; 85027; 85025; 86140

== ENCOUNTER 2023-05-08 10:11 | Outpatient (REF) | payer MEDICAID, SELFPAY ==
[2012-05-13 09:14] VITALS: BP 98/60; BP 98/70; PULSE 76
== END 2023-05-08 10:12 | disposition home or self-care (01) ==
LOC: NCHCN 10:11
PROVIDERS: PCP Family Medicine; Visit Provider Student in an Organized Health Care Education/Training Program
DX: R31.29 Other microscopic hematuria (principal)
CPT/HCPCS: 87077; 87086; 87186

== ENCOUNTER → 2023-05-10 02:00 | Outpatient (CLI) | payer MEDICAID, SELFPAY ==
[2012-05-13 09:14] VITALS: BP 98/60; BP 98/70; PULSE 76
--- NOTE | 2023-05-10 14:08 | DI.US_ITS ---
APPROVED REPORT EXAM: Comprehensive 2D, Doppler, and color-flow Echocardiogram Patient Location: Out-Patient [employer] Developer: Jenna Jett RDCS (AE) Indications: Aortic stenosis Other Information Study Quality: Adequate Conclusion Normal left ventricular wall thickness and chamber size. EF is 60%. Wall motion is normal Normal right ventricular size and function Both atria are normal in size Aortic valve is mildly sclerotic. It may be bicuspid. Valve motion is clearly present. There is mo derate to severe aortic stenosis. Calculated aortic valve area is 1 cm??. Mean gradient is 41 mmHg. There is no aortic regurgitation Normal estimated right ventricular systolic pressure 24 mmHg Ascending aorta 3.64 cm Wall motion Left Ventricle The left ventricle is normal size. The left ventricular systolic function is normal. The left ventric ular ejection fraction is within the normal range. There is normal left ventricular wall thickness. T here is normal LV segmental wall motion. There is no ventricular septal defect visualized. LVEF is 60 %. Right Ventricle The right ventricle is normal size. The right ventricular systolic function is normal. Atria The left atrium size is normal. The right atrium size is normal. The interatrial septum is intact wit h no evidence for an atrial septal defect. Aortic Valve ?? Bicuspid. Looks like it could be in m mode and psax?? Just not completely clear. Severe aortic diana nosis. Peak aortic valve gradient is 66.18mmHg. Highest mean aortic valve gradient is 41.41mmHg. Calc ulated JAMES by the continuity equation is 1.0cm2. No aortic regurgitation is present. Mitral Valve The mitral valve is normal in structure. No evidence of mitral valve stenosis. Trace mitral regurgita tion. Tricuspid Valve The tricuspid valve is normal in structure. There is no tricuspid valve stenosis. Trace tricuspid reg urgitation. The RVSP is 24.5_ mmHg. Pulmonic Valve The pulmonary valve is normal in structure. There is no pulmonic valvular stenosis. There is no pulmo marlena valvular regurgitation. Great Vessels The aortic root is normal in size. The ascending aorta is mildly dilated. Aortic arch is not well vis ualized. IVC is normal in size and collapses >50% with inspiration. Pericardium There is no pericardial effusion. 2D Dimensions IVSD d PLAX 1.01 cm F: 0.6-1.0 Ao Root d 2.78 cm F: 2.7 - 3.3 LVPW d PLAX 1.00 cm F: 0.6 - 1.0 Ao Asc Diam d 3.64 cm F: 2.3 - 3.1 LVID d PLAX 3.80 cm F: 3.8 - 5.2 LVDs 2.60 cm F: 2.2 - 3.5 LV EF Teichholz 60.2 % FS 31.54 % LV EDV (Teich) 62.1 mL LV ESV (Teich) 24.7 mL M-Mode TAPSE 1.63 cm (M/F) >1.7 Auto EF LV EDV A4C 68.1 mL LV EDV A2C 68.9 mL LV EDV BP 69.1 mL LV ESV A4C 28.7 mL LV ESV A2C 29.2 mL LV ESV BP 29.0 mL LVEF(%) A4C 57.8 % LVEF(%) A2C 57.6 % LVEF(%) BP 58.0 % LV SV A4C 39.4 ml LV SV A2C 39.7 ml LV SV BP 40.1 ml LV CO A4C 3.2 L/min LV CO A2C 3.6 L/min LV CO BP 3.4 L/min HR A4C 80.00 BPM HR A2C 89.96 BPM LV EDV Index (BP) LA Volume LA Length A4C 4.6 cm LA Length A2C 4.4 cm LA Area A4C s 12.12 cm2 LA Area A2C s 11.89 cm2 LA Vol A4C A-L 27.10 mL LA Vol A2C A-L 27.55 mL LA Vol Biplane A-L 28.1 mL LA Vol/BSA A4C A-L LA Vol/BSA A2C A-L LA Vol/BSA BP A-L 16.6 mL/m2 LA Vol A4C MOD 25.1 mL LA Vol A2C MOD 26.1 mL LA Vol BP MOD 26.2 mL RA Volume RA Area A4C 10.0 cm2 RA ESV A4C (A-L) 23.2mL RA Vol/BSA A4C A-L RA Length A4C 3.7 cm RA ESV A4C (MOD) 20.7mL LV Diastology MV E' medial 0.087 (>0.07 m/s) MV E Vmax 0.80 (0.4-1.3 m/s) MV E/E' MED 9.22 (<14) MV A Vmax 1.00 (0.4-1.3 m/s) MV E' lateral 0.087 (>0.1 m/s) E/A Ratio 0.8 MV E/E' LAT 9.22 (<14) MV E' Average 0.087 m/s MV E/E'(average) 9.22 Aortic Valve AoV Vmax 4.07 m/s LVOT Vmax 1.26 m/s AoV Peak Grad 66.2 mmHg LVOT Peak Grad 6.4 mmHg AoV Area (Vmax) 0.93 cm2 LVOT VTI 0.277 m AoV VTI 0.865 m LVOT Mean Grad 3.8 mmHg AoV Mean Fabrizio. 3.09 m/s LVOT SV 82.86 mL AoV Mean Grad 41.4 mmHg LVOT Diam s 1.95 cm AoV Area (VTI) 0.96 cm2 Velocity Ratio 0.31 Mitral Valve MV DT 235 (160-240 msec) MV Vmax TIPS 1.07 m/s MV Mean Grad 2.6 (<2mmHg) MV VTI 0.228 m Pulmonary Valve PV Vmax 0.99 (0.5-1.5 m/s) RVOT Vmax 0.85 m/s PV Peak Grad 4.0 mmHg RVOT Peak Gr. 2.9 mmHg PV Mean Fabrizio 0.69 m/s RVOT VTI 0.172 m PV Mean Grad 2.2 mmHg RVOT Mean Gr. 1.5 mmHg Tricuspid Valve RA Pressure 3.00 mmHg TR Vmax 2.32 m/s TV S' 0.13 m/s TR Peak Grad 21.4 mmHg RVSP (TR) 24.5 mmHg
== END ==
PROVIDERS: PCP Family Medicine; Visit Provider Internal Medicine Cardiovascular Disease
DX: I35.0 Nonrheumatic aortic (valve) stenosis (principal)
CPT/HCPCS: 93306

== ENCOUNTER 2023-06-05 16:23 | Outpatient (REF) | payer MEDICAID, SELFPAY ==
[2012-05-13 09:14] VITALS: BP 98/60; BP 98/70; PULSE 76
[2023-06-05 16:28] LABS: Bilirubin Negative (Negative); Blood Negative (Negative); Clarity Clear (Clear); Glucose Negative (Negative); Ketones Negative (Negative); Leukocyte Esterase Negative (Negative); Nitrite Negative (Negative); Urobilinogen 0.2 mg/dL (Up to 0.2)
== END 2023-06-05 16:24 | disposition home or self-care (01) ==
LOC: NCHCN 16:23
PROVIDERS: PCP Family Medicine; Visit Provider Student in an Organized Health Care Education/Training Program
DX: R31.9 Hematuria, unspecified (principal)
CPT/HCPCS: 81003

== ENCOUNTER 2023-08-22 12:57 | Outpatient (REF) | payer MEDICAID, SELFPAY ==
[2012-05-13 09:14] VITALS: BP 98/60; BP 98/70; PULSE 76
[2023-08-22 19:20] LABS: HCT 37.9 % (36.0-46.0); HGB 12.7 g/dL (11.2-15.7); MCH 32.7 pg (27.0-33.0); MCHC 33.5 % (32.0-36.0); MCV 98 fL (80-95); MPV 11.1 fL (8.0-11.0); Platelet Count 217 10^3/uL (130-400); RBC 3.88 10^6/uL (3.93-5.22); RDW 12.5 % (11.7-14.6); WBC 22.81 10^3/uL (4.4-10.8)
[2023-08-22 19:29] LABS: Anion Gap 17.1 mmol/L (3-11); BUN 22 mg/dL (7-18); CO2 18.9 mmol/L (21.0-32.0); CREATININE 1.4 mg/dL (0.55-1.02); Calcium 8.7 mg/dL (8.5-10.1); Chloride 99 mmol/L (98-107); Glucose 84 mg/dL (74-106); Potassium 4.7 mmol/L (3.5-5.1); Sodium 135 mmol/L (136-145); TSH (W/Ref FT4) 0.66 uIU/mL (0.36-3.74)
== END 2023-08-22 12:58 | disposition home or self-care (01) ==
LOC: NCHCN 12:57
PROVIDERS: PCP Family Medicine; Visit Provider Family Medicine
DX: E03.9 Hypothyroidism, unspecified (principal); N18.2 Chronic kidney disease, stage 2 (mild)
CPT/HCPCS: 80048; 85027; 84443

== ENCOUNTER 2023-08-24 12:39 | Emergency (ER) | payer MEDICAID, SELFPAY ==
[2012-05-13 09:14] VITALS: BP 98/60; BP 98/70; PULSE 76
--- NOTE | 2023-08-24 12:45 | RT.EKG_ITS ---
APPROVED REPORT Exam: Resting ECG Reason for Exam: ed ekg Patient Location: E HR:116 bpm ECG Measurements Heart Rate 116 AXIS WI 132 P 75 QRSd 71 QRS 26 QT 300 T 48 QTc 416 Conclusion Sinus tachycardia...rate> 99 I have reviewed and interpreted ECG and agree with software generated interpretation.
[2023-08-24 12:48] VITALS: BP 122/83; PULSE 119; RESP 18; TEMP 36.8; O2SAT 98
--- NOTE | 2023-08-24 12:58 | DI.CT_ITS ---
Exam(s) CT CHEST PE ABD PELVIS W EXAM: CT CHEST PE ABD PELVIS W CLINICAL HISTORY: SOB, chest pain, fever, eval for PE/pneumonia. TECHNIQUE: Imaging Protocol: Axial CT angiography was performed with multi-slice acquisition and mu lti-planar and/or 3D reconstructions. CONTRAST MATERIAL: Intravenous: Omnipaque 350contrast volume:100 mL COMPARISON: CT CT CHEST/ABD/PEL WO from 11/11/[address] CHEST WO from 06/28/2021 FINDINGS: CHEST: Tracheobronchial tree: Patent where visualized. Pulmonary parenchyma: There is persistent mild scarring in the right middle lobe which is unchanged. There is also stable scarring in the left lingula. No new infiltrates are seen. No suspicious pulm onary nodules are present. Pulmonary Arteries: No evidence of filling defect to suggest pulmonary emboli. Mediastinum and Makeda: No dominant adenopathy or fluid collection. The esophagus is unremarkable. Visualized thyroid gland: Unremarkable. Pleura: No effusion or pneumothorax. Heart: The heart is not dilated. No coronary artery calcifications are seen. No pericardial effusion. Aorta: Ascending thoracic aorta measures 4.2 x 4.0 cm. No evidence of dissection. Bones: Within normal limits for the patient's age. Soft tissues: Unremarkable. ABDOMEN: Liver: Normal density. No measurable mass. Portal, Superior Mesenteric, and Splenic Veins: Unremarkable. Gallbladder and Biliary Tract: Small gallstone. No biliary ductal dilatation. Pancreas: Normal density, no abnormal calcifications or inflammatory process. Spleen: Normal. Adrenals: No masses seen. Kidneys: Normal size, contour and axis. No radiodense stones or obstructive uropathy. No masses seen. Abdominal Aorta: Abdominal portion non-dilated. Bowel: Patient has had a total colectomy. There is a right lower quadrant ostomy in place. There is no evidence of bowel obstruction or bowel wall thickening. The stomach is incompletely distended li miting evaluation. Peritoneal Cavity: No ascites, collection or mesenteric inflammatory response. No free air. Lymph Nodes: Within normal limits. Bones: Within normal limits for the patient's age. Soft Tissues: Unremarkable. PELVIS: Bladder: Symmetric distention, no gross wall thickening. Reproductive Organs: Unremarkable as visualized. Lymph Nodes: Within normal limits. Bones: Within normal limits. IMPRESSION: 1. No evidence pulmonary embolism or thoracic aortic dissection. 2. The ascending thoracic aorta measures 4.2 x 4.0 cm. Previous measurement was 4.0 cm. 3. Stable scarring in the right middle lobe and left lingula. No new pulmonary infiltrates. 4. Status post total colectomy. 5. No acute abdominal or pelvic process. RADIATION DOSE DELIVERED: 1,202.02mGy.cm Total DLP DATA REPOSITORY: All CT scans at this facility are submitted to the National Radiology Data Registry (NRDR) Dose Index Registry (DIR) with the [employer] (ACR). RADIATION OPTIMIZATION: All CT scans at this facility use at least one of these dose optimization te chniques: automated exposure control; mA and/or kV adjustment per patient size (includes targeted exa ms where dose is matched to clinical indication); or iterative reconstruction.
[2023-08-24 13:48] LABS: Bilirubin Negative (Negative); Blood Negative (Negative); Clarity Sl Cloudy (Clear); Glucose Negative (Negative); Ketones 15 mg/dL (Negative); Leukocyte Esterase Negative (Negative); Nitrite Negative (Negative); Specific Gravity >= 1.030 (1.005-1.025); Urobilinogen 0.2 mg/dL (Up to 0.2); pH 5.5 (5-8)
[2023-08-24 13:56] LABS: Bacteria Moderate HPF (Negative); C & S Indicated? C&S Done As Ordered; Casts 0-2 Hyaline LPF (Negative); Crystals Negative HPF (Negative); Epithelial Cells Few HPF (Negative); Mucus Negative (Negative); RBC 0-2 HPF (0-2)
[2023-08-24 14:02] LABS: Abs Immature Grans 0.04 10^3/uL (0.0-0.06); Absolute Basophil Count 0.03 10^3/uL (0.0-0.2); Absolute Eosinophil Count 0.16 10^3/uL (0.0-0.7); Absolute Monocyte Count 0.55 10^3/uL (0.1-0.8); Absolute Neutrophil Count 7.59 10^3/uL (1.2-6.7); Basophils % 0.3 %; Eosinophils % 1.8 %; HCT 37.5 % (36.0-46.0); HGB 12.5 g/dL (11.2-15.7); Immature Grans % 0.4 %; Lymphocytes % 7.7 %; MCH 33.1 pg (27.0-33.0); MCHC 33.3 % (32.0-36.0); MCV 99 fL (80-95); MPV 9.4 fL (8.0-11.0); Monocytes % 6.1 %; Neutrophils % 83.7 %; Platelet Count 169 10^3/uL (130-400); RBC 3.78 10^6/uL (3.93-5.22); RDW 12.2 % (11.7-14.6); RDW-SD 44.3 fL; WBC 9.07 10^3/uL (4.4-10.8)
[2023-08-24] MEDS: Lactated Ringers 1,000 ML 1000 ML IV (14:04)
[2023-08-24 14:09] LABS: Lactate 1.3 mmol/L (0.9-1.7)
[2023-08-24 14:40] LABS: PTT Activated 21.9 sec (23.6-32.8); Prothrombin Time 10.5 sec (9.1-11.1)
[2023-08-24 14:44] LABS: COVID-19 PCR Negative (Negative); Influenza A PCR Negative (Negative); Influenza B PCR Negative (Negative); RSV PCR Negative (Negative)
[2023-08-24 14:47] LABS: Source Nasopharynx
[2023-08-24 14:51] LABS: ALT 33 U/L (14-59); AST 33 U/L (15-37); Albumin 3.2 g/dL (3.4-5.0); Alkaline Phosphatase 91 U/L (46-116); Anion Gap 8.4 mmol/L (3-11); BUN 19 mg/dL (7-18); Bilirubin, Total 0.38 mg/dL (0.2-1.0); CO2 22.6 mmol/L (21.0-32.0); CREATININE 1.4 mg/dL (0.55-1.02); Calcium 8.6 mg/dL (8.5-10.1); Chloride 102 mmol/L (98-107); Glucose 115 mg/dL (74-106); Lipase 172 U/L (16-77); Potassium 4.1 mmol/L (3.5-5.1); Sodium 133 mmol/L (136-145); TSH (W/Ref FT4) 0.93 uIU/mL (0.36-3.74); Total Protein 6.8 g/dL (6.4-8.2); Troponin I < 50 ng/L (< or =60)
[2023-08-24] MEDS: Omnipaque 350 MG/ML 100 ML BTL IJ (15:27)
--- NOTE | 2023-08-24 15:27 | ED.GENADUL_ITS ---
Discharge Plan Disposition Patient Disposition: Home Discharge Details Chief Complaint: Chest Pain Clinical Impression: Shortness of breath, Dehydration Primary Care Provider: Lindsey Clay ED Provider: Donny Spicer Home Meds and New Rx's Prescriptions: No Action famotidine 20 mg tablet 20 mg PO HS Zyrtec 10 mg capsule 10 mg PO DAILY PRN topiramate 50 mg tablet See Rx Instructions .ROUTE .COMPLEX Qty: 90 3RF Dose Instruction: TAKE ONE TABLET BY MOUTH AT BEDTIME Rx Instructions: TAKE ONE TABLET BY MOUTH AT BEDTIME Nurtec ODT 75 mg tablet,disintegrating See Rx Instructions .ROUTE .COMPLEX Qty: 8 11RF Dose Instruction: TAKE ONE TABLET BY MOUTH ONCE NEEDED FOR HEADACHE A SINGLE DOSE; MAX 1 TABLET PER DAY +15 DOSES PER 30 DAYS+ Rx Instructions: TAKE ONE TABLET BY MOUTH ONCE NEEDED FOR HEADACHE A SINGLE DOSE; MAX 1 TABLET PER DAY +15 DOSES PER 30 DAYS+ betamethasone dipropionate 0.05 % ointment 1 applic topical BID PRN calcipotriene-betamethasone 0.005-0.064 % suspension 1 applic topical DAILY PRN esomeprazole magnesium [Nexium] 40 mg capsule,delayed release(DR/EC) 40 mg PO DAILY fluocinonide 0.05 % solution 1 applic topical BID PRN magnesium 200 mg tablet 400 mg PO DAILY Stelara 90 mg/mL syringe 45 mg subcut Q8W cyclobenzaprine 10 mg tablet 30 mg PO HS Qty: 270 3RF Rx Instructions: Take 3 tabs at bedtime triamcinolone acetonide 0.1 % Cream 1 applic TOPICAL BID [id number] Tablet 1 tab PO DAILY levothyroxine 50 mcg Tablet 50 mcg PO DAILY cyanocobalamin (vitamin B-12) 1,000 mcg/mL Solution 1,100 mcg IM Q2W tacrolimus 0.1 % Ointment 1 applic topical PRN PRN estradiol [Estrace] 0.01 % (0.1 mg/gram) Cream 1 applic VAGINAL DAILY clindamycin phosphate 1 % Solution 1 applic topical BID cholecalciferol (vitamin D3) 25 mcg (1,000 unit) Tablet 25 mcg PO DAILY potassium chloride 20 mEq Tablet Extended Release 20 meq PO DAILY estradiol [Climara] 0.025 mg/24 hr patch weekly 1 patch topical QWEEK Rx Instructions: 0.5mg patch one week, 0.375 following week. valacyclovir 500 mg tablet 1,000 mg PO BID PRN prednisone 20 mg tablet 40 mg PO DAILY Qty: 8 0RF Discharge Instructions Instructions: Dehydration, Adult ED Additional Instructions: At this time your laboratory workup is returned reassuring. No signs of infection have been noted. Please stay well-hydrated. We have sent blood cultures which will take 2 to 3 days to come back. If these return abnormal we will contact you for further discussion. If you notice any worsening of your symptoms, or any new symptoms such as vomiting, diarrhea, fever, chills, shortness of breath, chest pain, numbness, weakness, or fainting , please return immediately to the emergency department for reevaluation. Please follow up with your primary care provider as soon as possible for reassessment and reevaluation. As always, it was a pleasure participating in your medical care today. Referrals: Lindsey Clay MD [Primary Care Provider] - [facility] General Date/Time Provider Initiated Documentation: 08/24/23 12:58 . HPI Narrative: 63-year-old female with a past medical history of aortic stenosis, GERD, rheumatoid arthritis, osteoarthritis, Crohn's disease on Stelara, chronic ostomy, chronic kidney disease, hypothyroidism, who presents today for evaluation of elevated heart rate, mild intermittent pleuritic chest pain, abdominal achiness. Patient is currently undergoing a significant amount of stress with the move, and multiple other stressors at home. She states that her pleuritic chest pain has been on and off for the last few days. Denies PE risk factors such as recent long car rides, immobilization, recent surgery, prior history of DVT or PE, family history of PE or DVT, morbid obesity, exogenous estrogen and smoking, hemoptysis, history of cancer. She denies any fever or chills. She denies any bloody diarrhea. She denies any significant vomiting. She did have an intrauterine device that was pulled out a week or so ago and had had some initial discharge at that time but denies any new discharge now. She denies any other complaints at this time. No urinary complaints otherwise. No other modifying factors. Also of note the patient's primary care provider 2 or 3 days ago did get some blood work and she had a white count greater than 20. Related Data Home Medications Medication Instructions Recorded Confirmed famotidine 20 mg tablet 20 mg PO HS 03/30/20 08/22/23 cetirizine 10 mg capsule (Zyrtec) 10 mg PO DAILY PRN 08/30/20 08/22/23 [id number] tablet 1 tab PO DAILY 11/11/20 08/22/23 cholecalciferol (vitamin D3) 25 25 mcg PO DAILY 11/11/20 08/22/23 mcg (1,000 unit) tablet clindamycin phosphate 1 % topical 1 applic topical BID 11/11/20 08/22/23 solution cyanocobalamin (vitamin B-12) 1,100 mcg IM Q2W 11/11/20 08/22/23 1,000 mcg/mL injection solution estradiol 0.01% (0.1 mg/gram) 1 applic vaginal DAILY 11/11/20 08/22/23 vaginal cream (Estrace) levothyroxine 50 mcg tablet 50 mcg PO DAILY 11/11/20 08/22/23 potassium chloride 20 mEq 20 meq PO DAILY 11/11/20 08/22/23 tablet,extended release tacrolimus 0.1 % topical ointment 1 applic topical PRN PRN 11/11/20 08/22/23 triamcinolone acetonide 0.1 % 1 applic topical BID 11/11/20 08/22/23 topical cream estradiol 0.025 mg/24 hr weekly 1 patch topical QWEEK 11/23/20 08/22/23 transdermal patch (Climara) valacyclovir 500 mg tablet 1,000 mg PO BID PRN 03/29/21 08/22/23 betamethasone dipropionate 0.05 % 1 applic topical BID PRN 06/14/22 08/22/23 topical ointment calcipotriene-betamethasone 0.005 1 applic topical DAILY PRN 06/14/22 08/22/23 %-0.064 % topical suspension esomeprazole magnesium 40 mg 40 mg PO DAILY 06/14/22 08/22/23 capsule,delayed release (Nexium) fluocinonide 0.05 % topical 1 applic topical BID PRN 06/14/22 08/22/23 solution magnesium 200 mg tablet 400 mg PO DAILY 06/14/22 08/22/23 ustekinumab 90 mg/mL subcutaneous 45 mg subcut Q8W 06/14/22 08/22/23 syringe (Stelara) cyclobenzaprine 10 mg tablet 30 mg (3 x 10 mg) PO HS #270 01/04/23 08/22/23 tab-caps prednisone 20 mg tablet 40 mg (2 x 20 mg) PO DAILY #8 tabs 03/04/23 07/30/23 rimegepant 75 mg disintegrating See Rx Instructions .Route 08/22/23 08/22/23 tablet (Nurtec ODT) .COMPLEX #8 tabs topiramate 50 mg tablet See Rx Instructions .Route 08/22/23 08/22/23 .COMPLEX #90 tabs Previous Rx's Medication Instructions Recorded cyclobenzaprine 10 mg tablet 30 mg (3 x 10 mg) PO HS #270 01/04/23 tab-caps prednisone 20 mg tablet 40 mg (2 x 20 mg) PO DAILY #8 tabs 03/04/23 rimegepant 75 mg disintegrating See Rx Instructions .Route 08/22/23 tablet (Nurtec ODT) .COMPLEX #8 tabs topiramate 50 mg tablet See Rx Instructions .Route 08/22/23 .COMPLEX #90 tabs Allergies Allergy/AdvReac Type Severity Reaction Status Date / Time NSAIDS (Non-Steroidal Allergy Other (See Verified 08/24/23 12:52 Anti-Inflamma Comment) baclofen AdvReac Intermediate Headache Verified 08/24/23 12:52 ibuprofen AdvReac Intermediate AVOID R/T Verified 08/24/23 12:52 CROHNS General Stated Complaint: Chest Pain SHRUTI: 3 Review of Systems All systems reviewed & are unremarkable except as noted in HPI and below Exam Narrative Exam Narrative: 1.Const: Well-nourished, Well-developed, appearing stated age 2.Eyes: PERRL, no conjunctival injection, and symmetrical lids. 3.ENT: Atraumatic external nose and ears. Dry MM. Neck: Symmetric, trachea midline, No thyromegaly. 4.CVS: +S1/S2, No murmurs or gallops. Peripheral pulses 2+ and equal in all extremities. Brisk capillary refill in all extremities. 5.RESP: Unlabored respiratory effort. Clear to auscultation bilaterally. No wheezes rales or rhonchi 6.GI: Soft, Nontender/Nondistended, No hepatosplenomegaly. No guarding or rebound. Ostomy in place, pink and moist ostomy site. 7.MSK: Normocephalic/Atraumatic, Extremities w/o deformity or ttp No cyanosis or clubbing, Normal movement of all extremities 8.Skin: Warm, Dry. No rashes or lesions. 9.Neuro: radio journalist II-XII grossly intact. Sensation grossly intact, no focal neurologic deficits. 10.Psych: (AAO) x3. Appropriate mood and affect Course Vital Signs Vital signs: Vital Signs Temperature 36.8 C 08/24/23 12:48 Pulse 119 H 08/24/23 12:48 Respiratory Rate 18 08/24/23 12:48 Blood Pressure 122/83 08/24/23 12:48 Pulse Oximetry 98 08/24/23 12:48 Temperature 36.8 C 08/24/23 12:48 Temperature Source Skin 08/24/23 12:48 Pulse 119 H 08/24/23 12:48 Respiratory Rate 18 08/24/23 12:48 Respiratory Effort Normal 08/24/23 12:56 Blood Pressure 122/83 08/24/23 12:48 Blood Pressure Position Sitting 08/24/23 12:48 Pulse Oximetry 98 08/24/23 12:48 Oxygen Delivery Method Room Air 08/24/23 12:48 Oxygen Flow Rate 0 08/24/23 12:48 Lab/Test Results Lab/Test Results: 08/24/23 13:30 Urine - Clean Catch Urine Culture - Pending 08/24/23 12:58 Blood Blood Culture - Pending 08/24/23 12:58 Blood Blood Culture - Pending Laboratory Tests Range/Units 08/24/23 08/24/23 08/24/23 13:26 13:30 13:50 WBC (4.4-10.8) 10^3/uL 9.07 RBC (3.93-5.22) 10^6/uL 3.78 L Hgb (11.2-15.7) g/dL 12.5 Hct (36.0-46.0) % 37.5 MCV (80-95) fL 99 H MCH (27.0-33.0) pg 33.1 H MCHC (32.0-36.0) % 33.3 RDW (11.7-14.6) % 12.2 Plt Count (130-400) 10^3/uL 169 MPV (8.0-11.0) fL 9.4 Immature Gran % % 0.4 Neutrophils % % 83.7 Lymphocytes % % 7.7 Monocytes % % 6.1 Eosinophils % % 1.8 Basophils % % 0.3 Nucleated RBC % (0.0-0.3) % 0.0 Absolute Neutrophils (1.2-6.7) 10^3/uL 7.59 H Absolute Lymphocytes (1.2-3.4) 10^3/uL 0.70 L Absolute Monocytes (0.1-0.8) 10^3/uL 0.55 Absolute Eosinophils (0.0-0.7) 10^3/uL 0.16 Absolute Basophils (0.0-0.2) 10^3/uL 0.03 PT Cancelled INR Cancelled APTT Cancelled VBG Lactate (0.9-1.7) mmol/L 1.3 Sodium Cancelled Potassium Cancelled Chloride Cancelled Carbon Dioxide Cancelled Anion Gap Cancelled BUN Cancelled Creatinine Cancelled Est GFR (CKD-EPI 2020) Cancelled Glucose Cancelled Calcium Cancelled Total Bilirubin Cancelled AST Cancelled ALT Cancelled Alkaline Phosphatase Cancelled Troponin I Cancelled Total Protein Cancelled Albumin Cancelled Lipase Cancelled TSH Cancelled Urine Color (Yellow) Yellow Urine Clarity (Clear) Sl Cloudy Urine pH (5-8) 5.5 Ur Specific Elwin (1.005-1.025) >= 1.030 H Urine Protein (Neg-Trace) mg/dL 30 H Urine Ketones (Negative) mg/dL 15 H Urine Blood (Negative) Negative Urine Nitrite (Negative) Negative Urine Bilirubin (Negative) Negative Urine Urobilinogen (Up to 0.2) mg/dL 0.2 Ur Leukocyte Esterase (Negative) Negative Urine RBC (0-2) HPF 0-2 Urine WBC (0-5) HPF 3-5 Ur Epithelial Cells (Negative) HPF Few Urine Crystals (Negative) HPF Negative Urine Bacteria (Negative) HPF Moderate Urine Casts (Negative) LPF 0-2 Hyaline Urine Mucus (Negative) Negative Ur Culture Indicated? C&S Done As Ordered Urine Glucose (Negative) mg/dL Negative COVID-19 Source Nasopharynx SARS-CoV-2 (PCR) (Negative) Negative Influenza Type A (PCR) (Negative) Negative Influenza Type B (PCR) (Negative) Negative RSV (PCR) (Negative) Negative Range/Units 08/24/23 14:20 WBC (4.4-10.8) 10^3/uL RBC (3.93-5.22) 10^6/uL Hgb (11.2-15.7) g/dL Hct (36.0-46.0) % MCV (80-95) fL MCH (27.0-33.0) pg MCHC (32.0-36.0) % RDW (11.7-14.6) % Plt Count (130-400) 10^3/uL MPV (8.0-11.0) fL Immature Gran % % Neutrophils % % Lymphocytes % % Monocytes % % Eosinophils % % Basophils % % Nucleated RBC % (0.0-0.3) % Absolute Neutrophils (1.2-6.7) 10^3/uL Absolute Lymphocytes (1.2-3.4) 10^3/uL Absolute Monocytes (0.1-0.8) 10^3/uL Absolute Eosinophils (0.0-0.7) 10^3/uL Absolute Basophils (0.0-0.2) 10^3/uL PT 10.5 INR 1.0 APTT 21.9 L VBG Lactate (0.9-1.7) mmol/L Sodium 133 L Potassium 4.1 Chloride 102 Carbon Dioxide 22.6 Anion Gap 8.4 BUN 19 H Creatinine 1.4 H Est GFR (CKD-EPI 2020) 42.80 Glucose 115 H Calcium 8.6 Total Bilirubin 0.38 AST 33 ALT 33 Alkaline Phosphatase 91 Troponin I < 50 Total Protein 6.8 Albumin 3.2 L Lipase 172 H TSH 0.93 Urine Color (Yellow) Urine Clarity (Clear) Urine pH (5-8) Ur Specific Elwin (1.005-1.025) Urine Protein (Neg-Trace) mg/dL Urine Ketones (Negative) mg/dL Urine Blood (Negative) Urine Nitrite (Negative) Urine Bilirubin (Negative) Urine Urobilinogen (Up to 0.2) mg/dL Ur Leukocyte Esterase (Negative) Urine RBC (0-2) HPF Urine WBC (0-5) HPF Ur Epithelial Cells (Negative) HPF Urine Crystals (Negative) HPF Urine Bacteria (Negative) HPF Urine Casts (Negative) LPF Urine Mucus (Negative) Ur Culture Indicated? Urine Glucose (Negative) mg/dL COVID-19 Source SARS-CoV-2 (PCR) (Negative) Influenza Type A (PCR) (Negative) Influenza Type B (PCR) (Negative) RSV (PCR) (Negative) Medical Decision Making 63-year-old female with a past medical history of aortic stenosis, GERD, rheumatoid arthritis, osteoarthritis, Crohn's disease on Stelara, chronic ostomy, chronic kidney disease, hypothyroidism, who presents today for evaluation of elevated heart rate, mild intermittent pleuritic chest pain, abdominal achiness. Patient is currently undergoing a significant amount of stress with the move, and multiple other stressors at home. She states that her pleuritic chest pain has been on and off for the last few days. Denies PE risk factors such as recent long car rides, immobilization, recent surgery, prior history of DVT or PE, family history of PE or DVT, morbid obesity, exogenous estrogen and smoking, hemoptysis, history of cancer. She denies any fever or chills. She denies any bloody diarrhea. She denies any significant vomiting. She did have an intrauterine device that was pulled out a week or so ago and had had some initial discharge at that time but denies any new discharge now. She denies any other complaints at this time. No urinary complaints otherwise. No other modifying factors. Also of note the patient's primary care provider 2 or 3 days ago did get some blood work and she had a white count greater than 20. Exam demonstrates well-appearing female, no focal abdominal tenderness, no guarding or rebound. Heart rate is elevated in the 120s, she is afebrile here. She is at high risk for infection secondary to her immunocompromise state from Stelara. Her pleuritic chest pain is concerning, differential includes PE, pneumonia, less likely pneumothorax, however sepsis from UTI or bacteremia is also of concern. We will get lactate, blood work, get CT imaging of her chest to evaluate for PE, as well as imaging of her abdomen to evaluate for abscess from her Crohn's disease, or potential infectious etiology from the removal of the intrauterine device will monitor closely and reassess. We will check for COVID flu and RSV as well to evaluate for viral etiology. 4:53 PM Laboratory workup is returned, no white count bandemia or left shift. Notable improvement compared to prior labs done a few days ago. No neutropenia. Lactate normal at 1.3, electrolytes normal, creatinine 1.4, troponin initially and repeat are both negative, EKG benign. Procalcitonin mildly elevated at 2.6, however no clinical symptoms of septic shock or severe sepsis at this time. Thyroid function normal. Urinalysis negative. No evidence of significant UTI. COVID flu and RSV are negative. CT scan of the chest abdomen pelvis demonstrates no evidence of pulmonary embolism or aortic dissection, mild ascending thoracic aortic size increased at 4.2.4. No evidence of significant aneurysm. No signs of pneumonia or infiltrate. No evidence of acute abdominal or pelvic etiology per radiology. On reassessment patient feels well, vital signs stable no hypoxemia, or signs of significant hemodynamic instability. Patient feels much better after fluids. At this time with no evidence of acute life-threatening etiology I do feel the patient is stable for discharge. No indication for antibiotics at this time with no clear evidence of infectious etiology or source. No meningeal signs. No signs of pneumonia or UTI or acute intra-abdominal pathology. Blood cultures have been sent, if they return positive we will contact the patient, however at this time there is no clinical evidence of significant infectious etiology. Dehydration may certainly be a component of her initial symptoms. No other evidence of concerning etiology is noted at this time. Patient will be discharged home. Discussed red flags which to return. I have extensively reviewed the treatment plan and discharge instructions with the patient. I have addressed all patient concerns at this time. The patient was made aware of what symptoms to monitor for that would warrant a return to the emergency department. Discussed the plan with the patient, they demonstrate verbal understanding and agreement with our assessment and plan at this time. The documentation in this chart was dictated using [employer] dictation software. Please excuse any dictation errors. FINDINGS: CHEST: Tracheobronchial tree: Patent where visualized. Pulmonary parenchyma: There is persistent mild scarring in the right middle lobe which is unchanged. There is also stable scarring in the left lingula. No new infiltrates are seen. No suspicious pulmonary nodules are present. Pulmonary Arteries: No evidence of filling defect to suggest pulmonary emboli. Mediastinum and M[place]a: No dominant adenopathy or fluid collection. The esophagus is unremarkable. Visualized thyroid gland: Unremarkable. Pleura: No effusion or pneumothorax. Heart: The heart is not dilated. No coronary artery calcifications are seen. No pericardial effusion. Aorta: Ascending thoracic aorta measures 4.2 x 4.0 cm. No evidence of dissection. Bones: Within normal limits for the patient's age. Soft tissues: Unremarkable. ABDOMEN: Liver: Normal density. No measurable mass. Portal, Superior Mesenteric, and Splenic Veins: Unremarkable. Gallbladder and Biliary Tract: Small gallstone. No biliary ductal dilatation. Pancreas: Normal density, no abnormal calcifications or inflammatory process. Spleen: Normal. Adrenals: No masses seen. Kidneys: Normal size, contour and axis. No radiodense stones or obstructive uropathy. No masses seen. Abdominal Aorta: Abdominal portion non-dilated. Bowel: Patient has had a total colectomy. There is a right lower quadrant ostomy in place. There is no evidence of bowel obstruction or bowel wall thickening. The stomach is incompletely distended limiting evaluation. Peritoneal Cavity: No ascites, collection or mesenteric inflammatory response. No free air. Lymph Nodes: Within normal limits. Bones: Within normal limits for the patient's age. Soft Tissues: Unremarkable. PELVIS: Bladder: Symmetric distention, no gross wall thickening. Reproductive Organs: Unremarkable as visualized. Lymph Nodes: Within normal limits. Bones: Within normal limits. IMPRESSION: 1. No evidence pulmonary embolism or thoracic aortic dissection. 2. The ascending thoracic aorta measures 4.2 x 4.0 cm. Previous measurement was 4.0 cm. 3. Stable scarring in the right middle lobe and left lingula. No new pulmonary infiltrates. 4. Status post total colectomy. 5. No acute abdominal or pelvic process. 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) Aortic stenosis (Chronic) Migraine headache without aura (Acute) Migraine headache with aura (Acute) Diarrhea (Acute) Dehydration (Acute) Arthritis (Acute) Medical History Chest pain Herpes labialis Vaginitis Chronic insomnia GERD (gastroesophageal reflux disease) Hypothyroidism Bicuspid aortic valve Aortic stenosis, moderate Chronic kidney disease Vitamin B12 deficiency Crohn's disease Social History (Reviewed 08/24/23 @ 15:30 by FERNANDA Chicas Smoking/Tobacco Use Status: Former Tobacco Use Smoking risk assessment performed?: Yes Alcohol Intake: never Drug use: Never Substance use type: does not use Household members: spouse Housing: house 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
[2023-08-24] MEDS: Normal Saline - Diluent 50 ML VIAL IJ (15:28)
[2023-08-24 16:30] LABS: Troponin I < 50 ng/L (< or =60)
[2023-08-24 16:49] LABS: Procalcitonin 2.6 ng/mL
[2023-08-24 17:03] VITALS: RESP 16
[2023-08-24 17:07] VITALS: BP 121/77; PULSE 91; RESP 16; TEMP 36.4; O2SAT 100
[2023-08-24 17:10] VITALS: BP 121/77; PULSE 91; RESP 16; TEMP 36.4; O2SAT 100
== END 2023-08-24 17:10 | disposition home or self-care (01) ==
PROVIDERS: Emergency Provider Student in an Organized Health Care Education/Training Program; PCP Family Medicine
DX: R06.02 Shortness of breath (principal); E86.0 Dehydration; R07.89 Other chest pain; R10.817 Generalized abdominal tenderness
CPT/HCPCS: 71275; 74177; 80053; 83690; 84145; 87040; 87637; 93005; 96360; 96361; 99285; 81003; 81015; 83605; 84443; 84484; 85025; 85610; 85730; 87086; 93010; 99283; J3490